=== PATIENT | male | born 1970 | race Caucasian/White ===

== ENCOUNTER 2018-12-10 04:37 | Emergency (ER) | payer BC, OTHER ==
[~2018-12-10] VITALS: Ht 177.8 cm; Wt 121.9 kg
[2018-12-10 04:41] VITALS: Ht 177.8 cm; Wt 121.9 kg
[2018-12-10] MEDS ORDERED: SOD CHLORIDE 0.9% 500 ML IV STA (05:12)
[2018-12-10] MEDS ORDERED: PHEN300C2 PO (06:38)
--- NOTE | 2018-12-10 06:44 | ERD ---
ER Documentation Chief Complaint Chief Complaint BIB W/ C/O POSSIBLE SZ'S, HX OF SZ, ON AND OFF ALOC X48HRS HPI 48-year-old man with a history of partial focal seizures presenting with increased episodes over the last 2weeks. Patient has been using Dilantin 400 mg daily for about 10 years and still suffers from momentary focal partial seizures about once every 2 to 3 weeks as stated by the patient and his who was at the bedside. His seizures usually consist of "lipsmacking", momentary confusion, and blank stare. states his symptoms have become more intense over the last 2 weeks and have become daily. He denies ever having generalized tonic-clonic seizure, no recent fevers or chills, no chest pain or shortness of breath. ROS All systems reviewed and are negative except as per history of present illness. Medications Home Meds Active Scripts Phenytoin* Sodium Extended (Dilantin*) 300 Mg Capsule, 300 MG PO BID, #60 CAP Prov:NIRANJAN CASTANO MD 12/10/18 PMhx/Soc Seizure disorder Medical and Surgical Hx: pt denies Surgical Hx Hx Neurological Disorder: Yes (SEIZURE DISORDER ) Hx Respiratory Disorders: Yes (ASTHMA ) Hx Cardiac Disorders: Yes (HTN ) Hx Psychiatric Problems: No Hx Miscellaneous Medical Probl: Yes (SORIATIC ARTHRITIS ) Hx Alcohol Use: No Hx Substance Use: No Hx Tobacco Use: No Smoking Status: Never smoker FmHx Family History: No diabetes Physical Exam Vitals Vital Signs Date Temp Pulse Resp B/P (MAP) Pulse Ox O2 O2 Flow FiO2 Time Delivery Rate 12/10/18 89 20 130/78 Room Air 07:07 (95) 12/10/18 98.3 91 19 135/94 95 04:41 (108) Physical Exam GENERAL: Well-developed, well-nourished, well-hydrated, in no apparent distress, looks nontoxic in appearance HEENT: Moist mucous membranes, pink conjunctiva, no cervical spine tenderness or step-off deformities, no goiter, no jaundice or icterus, extraocular movements intact without pain. No submandibular induration, and no pharyngeal erythema NEURO: Alert and oriented 3, cranial nerves II through XII intact bilaterally, pupils equal round reactive to light, no focal deficits or facial asymmetry, sensation intact distally Strength 5/5 in upper and lower extremities bilaterally CARDIAC: Regular rate and rhythm, no murmurs rubs or gallops LUNGS: Clear bilaterally no wheezing crackles or stridor ABDOMEN: Soft nontender, no guarding, no rigidity, no rebound, no psoas sign no obturator sign. Normoactive bowel sounds SKIN: Warm and dry to touch, no abrasions, contusions, or hematomas, no lacerations, no ecchymosis, no target lesions, and without ulcers EXTREMITIES: No clubbing cyanosis or edema, calves are bilaterally symmetrical, no Homans sign, no popliteal cord sign. Distal pulses equal and bilateral PSYCH: Normal affect without agitation or irritability Result Diagram: 12/10/1852912/10/1830 Results 24 hrs Laboratory Tests Test 12/10/18 05:30 12/10/18 05:36 White Blood Count 12.1 10^3/ul Red Blood Count 5.09 10^6/ul Hemoglobin 15.7 g/dl Hematocrit 45.7 % Mean Corpuscular Volume 89.8 fl Mean Corpuscular Hemoglobin 30.8 pg Mean Corpuscular Hemoglobin Concent 34.4 g/dl Red Cell Distribution Width 13.7 % Platelet Count 225 10^3/UL Mean Platelet Volume 11.5 fl Immature Granulocytes % 1.100 % Neutrophils % 86.3 % Lymphocytes % 6.0 % Monocytes % 6.4 % Eosinophils % 0.0 % Basophils % 0.2 % Nucleated Red Blood Cells % 0.0 /100WBC Immature Granulocytes # 0.130 10^3/ul Neutrophils # 10.5 10^3/ul Lymphocytes # 0.7 10^3/ul Monocytes # 0.8 10^3/ul Eosinophils # 0.0 10^3/ul Basophils # 0.0 10^3/ul Nucleated Red Blood Cells # 0.0 10^3/ul Sodium Level 136 mmol/L Potassium Level 3.6 mmol/L Chloride Level 101 mmol/L Carbon Dioxide Level 22 mmol/L Anion Gap 13 Blood Urea Nitrogen 28 mg/dl Creatinine 0.84 mg/dl Est Glomerular Filtrat Rate mL/min > 60 mL/min Glucose Level 170 mg/dl Calcium Level 8.9 mg/dl Phenytoin (Dilantin) Level 4.1 ug/ml Bedside Glucose 160 mg/dL Current Medications Medications Dose Sig/Brittani Start Time Status Last (Trade) Ordered Route PRN Stop Time Admin Dose Reason Admin Sodium 500 ml @ Q1H STAT 12/10/18 DC Chloride 500 mls/hr IV 05:12 12/10/18 06:11 Phenytoin 400 mg ONCE ONCE 12/10/18 DC 12/10/18 (Dilantin) PO 07:00 06:48 12/10/18 07:01 Procedures/MDM IV line was established patient was placed on gambling monitor rhythm strip revealed a sinus rhythm at about 80 bpm with upright P and T waves. Patient was afebrile Patient received 500 cc normal saline IV. CT scan was negative for acute bleed mass or shift. CBC and electrolytes are normal. Phenytoin level was low so I ordered phenytoin 400 mg p.o. x1 Patient does have neurology follow-up scheduled in 2 weeks but in the meantime I agreed to increase his dose of phenytoin to twice a day to help with control these partial seizures. I also discussed with the patient and his that some of his symptoms may be psychiatric in by he may need psychological psychiatric evaluation and consultation although I will defer further management and imaging to his PMD and neurologist. Differential diagnoses considered, included but not limited to acute coronary syndrome, pulmonary embolism, aortic dissection, abdominal aortic aneurysm, sepsis, stroke, meningitis, encephalitis, pneumonia, appendicitis, cholecystitis, bowel obstruction, pyelonephritis, nephrolithiasis, cystitis, as well as metabolic, hematologic, and electrolyte abnormalities. As well as abscess, cellulitis, fractures, and dislocations. Patient feels much better at this time, and vital signs are normal, symptoms have improved. I did give strict instructions to return to the ED if symptoms continue or worsen, patient will otherwise follow-up with primary care physician. Patient understood instructions and agreed to plan. Disclaimer: Inadvertent spelling and grammatical errors are likely due to EHR/dictation software use and do not reflect on the overall quality of patient care. Also, please note that the electronic time recorded on this note does not necessarily reflect the actual time of the patient encounter. Departure Diagnosis: Primary Impression: Seizure disorder Additional Impression: Psychiatric illness Condition: Good Patient Instructions: Seizure, Recurrent [Adult] Referrals: LISA GARRETT MD, YURIY MD WAGNER, JEFFREY C. MD ZOHRABIAN, DAVID MD December 10, 2018 06:44
[2018-12-10] MEDS ORDERED: PHENYTOIN 100 MG CAP PO ONE (07:00)
[2018-12-10 07:07] VITALS: BP 130/78; PULSE 89; RESP 20
[2018-12-11] MEDS ORDERED: VERA360C6 PO (16:57)
[2018-12-11] MEDS ORDERED: CLON0.2T5 PO (16:59)
[2018-12-11] MEDS ORDERED: FOLI-49 PO (17:00)
[2018-12-11] MEDS ORDERED: MET25 PO (17:01)
[2018-12-11] MEDS ORDERED: DICL50TA11 PO (17:02)
[2018-12-11] MEDS ORDERED: HYDR100T25 PO (17:03)
[2018-12-11] MEDS ORDERED: ALPR0.254 PO (17:04)
[2018-12-11] MEDS ORDERED: LISI-471 PO (17:04)
[2018-12-11] MEDS ORDERED: PHEN100C PO (17:08)
[2018-12-11] MEDS ORDERED: ADAL40PE SQ (17:10)
== END 2018-12-10 07:09 | disposition home or self-care (01) ==
LOC: E/R 04:37
DX: G40.909 Epilepsy, unspecified, not intractable, without status epilepticus (principal); I10 Essential (primary) hypertension; J45.909 Unspecified asthma, uncomplicated
CPT/HCPCS: 36415; 70450; 80048; 80185; 82962; 85025; 99284; J7040

== ENCOUNTER 2018-12-11 15:25 | Inpatient (IN) | payer BC ==
[~2018-12-11] VITALS: Ht 177.8 cm; Wt 122.6 kg
[~2018-12-11 15:25] MED LIST: PHEN300C2 PO
[2018-12-11] MEDS ORDERED: LORAZEPAM 2 MG INJ IV STA (15:35)
[2018-12-11] MEDS ORDERED: SOD CHLORIDE 0.9% 500 ML IV STA (15:35)
[2018-12-11] MEDS ORDERED: VERA360C6 PO (16:57)
[2018-12-11] MEDS ORDERED: CLON0.2T5 PO (16:59)
[2018-12-11] MEDS ORDERED: FOLI-49 PO (17:00)
[2018-12-11] MEDS ORDERED: MET25 PO (17:01)
[2018-12-11] MEDS ORDERED: DICL50TA11 PO (17:02)
[2018-12-11] MEDS ORDERED: HYDR100T25 PO (17:03)
[2018-12-11] MEDS ORDERED: LISI-471 PO (17:04)
[2018-12-11] MEDS ORDERED: ALPR0.254 PO (17:04)
[2018-12-11] MEDS ORDERED: PHEN100C PO (17:08)
[2018-12-11] MEDS ORDERED: ADAL40PE SQ (17:10)
--- NOTE | 2018-12-11 18:25 | ERD ---
ER Documentation Chief Complaint Chief Complaint FALL IN BATHROOM DIGESTER CAPPER POSSIBLE SEIZURE H/O SEIZURES HPI This is a 48-year-old male with a past medical history of hypertension, arthritis, asthma, seizure disorder on Dilantin who is presenting for possible focal seizures that have been recurrent and increasing in frequency over the l ast several days. The patient was evaluated yesterday where he had a reassuring work-up and was ultimately discharged on an increased dose of Dilantin. Despite taking this increased dose last night and this morning, the patient's symptoms have persisted. The patient has these few seconds a few minute episodes of lipsmacking. Sometimes he reports remembering the event. Other times it, he reports not remembering the event. The patient's reports that he has been more altered than is typical over the last several days, which is concerning to her. The patient's reports that he was confused after 1 of these events and started running around the house and ultimately hit his head against the wall by accident. She does not feel that she is able to control him during these episodes and is afraid for his safety. The patient is currently alert and oriented. He does have these intermittent episodes of lip smacking, but he reports that sometimes he feels like he can control them. He does not have any current focal deficits. He does not have any weakness or numbness or tingling to the face or extremities. He has not been sick recently. He denies any fever or chills. The patient has had no headache or vision changes. The patient does not endorse neck or back pain. The patient denies lightheadedness or dizziness. The patient has had no chest pain or trouble breathing. The patient denies nausea or vomiting. The patient denies abdominal pain. The patient denies changes to bowel movements or urination. ROS All systems reviewed and are negative except as per history of present illness. Medications Home Meds Reported Medications Adalimumab (Humira) 40 Mg/0.8 Ml Pen.ij.kit, 0.4 ML SQ Q 14D 12/11/18 Phenytoin* Sodium Extended (Dilantin*) 100 Mg Capsule, 100 MG PO QID, CAP ADJUSTED IN ER ON SAT-QA (12/10)-3CAP BID 12/11/18 Lisinopril* (Lisinopril*) 20 Mg Tablet, 20 MG PO BID, #30 TAB 12/11/18 Alprazolam* (Alprazolam*) 0.25 Mg Tablet, 0.25 MG PO TID PRN for ANXIETY, TAB 12/11/18 Hydralazine Hcl* (Hydralazine Hcl*) 100 Mg Tablet, 100 MG PO TID, #90 TAB 12/11/18 Diclofenac Sodium* (Diclofenac Sodium*) 50 Mg Tablet.dr, 50 MG PO BID, #60 TAB 12/11/18 Methotrexate* (Methotrexate*) 2.5 Mg Tab, 20 MG PO Q7D, TAB 12/11/18 Folic Acid* (Folic Acid*) 1 Mg Tablet, 1 MG PO DAILY, TAB 12/11/18 Clonidine Hcl* (Clonidine Hcl*) 0.2 Mg Tablet, 0.2 MG PO Q4H PRN for HTN, TAB 12/11/18 Verapamil Hcl* (Verelan*) 360 Mg Cap24h.pel, 360 MG PO DAILY, CAP 12/11/18 Discontinued Scripts Phenytoin* Sodium Extended (Dilantin*) 300 Mg Capsule, 300 MG PO BID, #60 CAP Prov:NIRANJAN CASTANO MD 12/10/18 Allergies Allergies: Coded Allergies: No Known Allergy (Unverified , 12/11/18) PMhx/Soc History of Surgery: No Anesthesia Reaction: No Hx Neurological Disorder: Yes (SEIZURE DISORDER ) Hx Respiratory Disorders: Yes (ASTHMA ) Hx Cardiac Disorders: Yes (HTN ) Hx Psychiatric Problems: No Hx Miscellaneous Medical Probl: Yes (SORIATIC ARTHRITIS ) Hx Alcohol Use: No Hx Substance Use: No Hx Tobacco Use: No Smoking Status: Never smoker FmHx Family History: No diabetes Physical Exam Vitals Vital Signs Date Temp Pulse Resp B/P (MAP) Pulse Ox O2 O2 Flow FiO2 Time Delivery Rate 12/11/18 68 18 108/91 96 Room Air 17:00 (97) 12/11/18 98.1 89 16 139/76 99 15:31 (97) Physical Exam Const: No apparent distress, well-developed, well-nourished Head: Normocephalic, Atraumatic Eyes: Normal Conjunctiva. Extraocular movements intact. Pupils equal, round and reactive to light ENT: Normal External Ears, Nose and Mouth. Neck: Full range of motion. No meningismus. Resp: Clear to auscultation bilaterally, No wheezes, rales or rhonchi Cardio: Regular rate and rhythm. No murmurs, rubs or gallops Abd: Soft, non tender, non distended. Normal bowel sounds Skin: No petechiae or rashes Back: No midline tenderness. No CVA tenderness Ext: No cyanosis, or edema Neur: Awake and alert, oriented 4. Cranial nerves intact. No facial droop. Normal strength, sensation and coordination. Few second episode of lipsmacking occurred during the physical assessment. Psych: Odd affect Result Diagram: 12/11/18 1558 12/11/18 1558 Results 24 hrs Laboratory Tests Test 12/11/18 15:58 White Blood Count 13.5 10^3/ul Red Blood Count 4.63 10^6/ul Hemoglobin 14.3 g/dl Hematocrit 40.2 % Mean Corpuscular Volume 86.8 fl Mean Corpuscular Hemoglobin 30.9 pg Mean Corpuscular Hemoglobin Concent 35.6 g/dl Red Cell Distribution Width 13.3 % Platelet Count 211 10^3/UL Mean Platelet Volume 11.0 fl Immature Granulocytes % 1.700 % Neutrophils % 81.1 % Lymphocytes % 6.7 % Monocytes % 10.4 % Eosinophils % 0.0 % Basophils % 0.1 % Nucleated Red Blood Cells % 0.0 /100WBC Immature Granulocytes # 0.230 10^3/ul Neutrophils # 10.9 10^3/ul Lymphocytes # 0.9 10^3/ul Monocytes # 1.4 10^3/ul Eosinophils # 0.0 10^3/ul Basophils # 0.0 10^3/ul Nucleated Red Blood Cells # 0.0 10^3/ul Sodium Level 127 mmol/L Potassium Level 3.1 mmol/L Chloride Level 91 mmol/L Carbon Dioxide Level 23 mmol/L Anion Gap 13 Blood Urea Nitrogen 17 mg/dl Creatinine 0.66 mg/dl Est Glomerular Filtrat Rate mL/min > 60 mL/min Glucose Level 121 mg/dl Calcium Level 8.1 mg/dl Current Medications Medications Dose Sig/Brittani Start Time Status Last (Trade) Ordered Route PRN Stop Time Admin Dose Reason Admin Sodium 500 ml @ Q1H STAT 12/11/18 DC 12/11/18 Chloride 500 mls/hr IV 15:35 15:53 12/11/18 16:34 Lorazepam 1 mg ONCE STAT 12/11/18 DC 12/11/18 (Ativan) IV 15:35 15:52 12/11/18 15:36 Procedures/MDM MDM The patient's presentation warrants further investigation. Previous medical records, if available, were reviewed. LABS The patient's laboratory testing was obtained and reviewed. No emergent treatment was required unless described below. CBC: Leukocytosis, likely reactive. No E/o severe anemia or thrombocytopenia Chemistry: Mild hyponatremia and hypokalemia, nonemergent. No E/o severe acidosis or alkalosis or renal failure or diabetic ketoacidosis IMAGING Imaging and Radiology interpretation reviewed. CXR FINDINGS: The cardiomediastinal silhouette is within normal limits. No focal pulmonary consolidations. There is no evidence of significant pleural effusion or pneumothorax. No suspicious osseous lesions. IMPRESSION: No radiographic evidence of acute cardiopulmonary disease. Electronically viewed and signed by Physician Alexandra on 12/11/2018 16:21 CT Head FINDINGS: Hemorrhage: No evidence of intracranial hemorrhage. Acute ischemic changes: No evidence of acute ischemic changes. Mass effect: None. Parenchymal volume: Within normal limits for age. Ventricular system: Concordant with parenchymal volume. Chronic changes: Parenchymal attenuation is within normal limits. Extracranial soft tissues: Unremarkable. Calvarium: No fractures. Paranasal sinuses: Visualized paranasal sinuses are clear. Mastoid air cells: Visualized mastoid air cells are clear. IMPRESSION: No acute intracranial abnormalities. Normal appearance of the brain parenchyma, unchanged. MRI of the brain recommended for further evaluation. Electronically viewed and signed by .Dangelo Eller MD, MD on 12/11/2018 16:31 TREATMENT/DISPOSITION The patient presents for reported frequent seizure events. The patient's symptoms have not been under control despite emergency department visit yesterday and compliance with increasing his dose of Dilantin. The patient reportedly struck his head while confused yesterday after 1 of these reported seizure events and there is concerned about the patient's safety at home. I do feel that the patient would benefit from admission to the hospital for a neurologic assessment. The patient reportedly does not have a neurologist following him in an outpatient setting. The patient does have a mild hyponatremia and hypokalemia, but I do not suspect these to be the etiology of his symptoms today. The patient does have an odd affect, and there is consideration for a possible psychiatric illness as the etiology of his symptoms. However, this is a diagnosis of exclusion. I do feel the patient requires further evaluation from a neurologic perspective prior to being able to make a diagnosis like this. I doubt a cardiopulmonary pathology. I do not see evidence of cerebral ischemia or intracranial hemorrhage. I doubt an infectious etiology. The patient was treated with IV fluids and Ativan in the emergency department. The patient's Dilantin level is currently pending. ADMISSION At this time, I feel that the patient requires admission for further evaluation and management. The patient will be admitted to panel in accordance with the patient's insurance. The patient was accepted by Dr. Fernández at 6:15 PM on December 11, 2018. Disclaimer: Inadvertent spelling and grammatical errors are likely due to EHR/dictation software use and do not reflect on the overall quality of patient care. Note that the electronic time recorded on this note does not necessarily reflect the actual time of the patient encounter. Departure Diagnosis: Primary Impression: Recurrent seizures Additional Impressions: Seizure disorder Leukocytosis Leukocytosis type: unspecified Qualified Codes: D72.829 - Elevated white blood cell count, unspecified Hyponatremia Hypokalemia Condition: Serious TOÑO PITTS MD December 11, 2018 18:22
[2018-12-11] MEDS ORDERED: ONDANSETRON 4 MG INJ IV PRN ×2 (18:30→19:00)
[2018-12-11] MEDS ORDERED: ACETAMINOPHEN 325 MG TAB PO PRN ×2 (18:30→19:00)
--- NOTE | 2018-12-11 18:50 | HP ---
Date/Time of Note Date/Time of Note DATE: 12/11/18 TIME: 18:42 Assessment/Plan VTE Prophylaxis SCD applied (from Nsg): Yes Pharmacological prophylaxis: LMWH Lines/Catheters IV Catheter Type (from Nrsg): Saline Lock Assessment/Plan Hospital Course 1. Seizure disorder Patient with increased frequency of seizure activity over the past several weeks CT head with no acute findings Dilantin level from yesterday was low, follow-up repeat Dilantin MRI brain and EEG Neurology consultation obtained Symptoms may be psych related due to increased anxiety and severe stress Continue Dilantin for now, consider changing antiseizure medication, will defer to neurology 2. Hypertension Continue home meds 3. Morbid obesity Left cell changes 4. Hypokalemia Replete 5. Hyponatremia likely secondary to volume depletion Normal saline 6. Hypocalcemia Replete 7. Leukocytosis likely reactive Monitor Prophylaxis: Lovenox Result Diagram: 12/11/18 1558 12/11/18 1558 Results 24hrs Laboratory Tests Test 12/11/18 15:58 White Blood Count 13.5 H Red Blood Count 4.63 L Hemoglobin 14.3 Hematocrit 40.2 L Mean Corpuscular Volume 86.8 Mean Corpuscular Hemoglobin 30.9 Mean Corpuscular Hemoglobin Concent 35.6 Red Cell Distribution Width 13.3 Platelet Count 211 Mean Platelet Volume 11.0 H Immature Granulocytes % 1.700 H Neutrophils % 81.1 H Lymphocytes % 6.7 L Monocytes % 10.4 Eosinophils % 0.0 Basophils % 0.1 Nucleated Red Blood Cells % 0.0 Immature Granulocytes # 0.230 H Neutrophils # 10.9 H Lymphocytes # 0.9 Monocytes # 1.4 H Eosinophils # 0.0 Basophils # 0.0 Nucleated Red Blood Cells # 0.0 Sodium Level 127 L Potassium Level 3.1 L Chloride Level 91 #L Carbon Dioxide Level 23 Anion Gap 13 Blood Urea Nitrogen 17 # Creatinine 0.66 Est Glomerular Filtrat Rate mL/min > 60 Glucose Level 121 # Calcium Level 8.1 L HPI/ROS Admit Date/Time Admit Date/Time December 11, 2018 Hx of Present Illness Patient is a 48-year-old male with a history of obesity, hypertension as well as seizure disorder. Patient first suffered a seizure 23 years ago, at that time he reported fevers and headache prior to his seizure episode. Patient was subsequently started on Dilantin, 6 months later he was playing softball and got hit in the arm suffered another seizure. Patient has continued his Dilantin since then with no further seizures until the past several weeks. Over the past several weeks patient began developing episodes of confusion that would last several minutes where he did not know where he was and would lose focus, patient also developed lipsmacking and would often ramble according to the . Ike wheeler did present to the ED several days ago, CT head was normal, Dilantin level was low and dosage was increased and patient was discharged in stable condition. Since being discharged several days ago patient reportedly became worse, earlier today patient became confused and fell around the pool and hit his head. Repeat CT head shows no acute bleed or any other acute findings. Patient does endorse an increased amount of stress over the past several months due to issues with finances. Patient has no other complaints at this time. ROS Constitutional: no complaints, improved Eyes: no complaints ENT: no complaints Respiratory: no complaints Cardiovascular: no complaints Gastrointestinal: no complaints Genitourinary: no complaints Musculoskeletal: no complaints Skin: no complaints Neurologic: seizure Endocrine: no complaints Lymphatic: no complaints Psychological: anxiety Immunologic: no complaints PMH/Family/Social Past Medical History Hypertension, obesity and seizures Medications Current Medications Ondansetron HCl (Zofran Inj) 4 mg BRIDGE ORDER PRN IV NAUSEA/VOMITING; Start 12/11/18 at 18:30; Stop 12/12/18 at 18:29 Acetaminophen (Tylenol Tab) 650 mg ER BRIDGE PRN PO .MILD PAIN 1-3 OR TEMP; Start 12/11/18 at 18:30; Stop 12/12/18 at 18:29 Coded Allergies: No Known Allergy (Unverified , 12/11/18) Past Surgical History Past Surgical Hx: no surgical history Family History Significant Family History: diabetes Social History Alcohol Use: rarely Smoking Status: Never smoker Drug Use: none Exam/Review of Systems Vital Signs Vitals Vital Signs Date Temp Pulse Resp B/P (MAP) Pulse Ox O2 O2 Flow FiO2 Time Delivery Rate 12/11/18 77 20 117/74 100 Room Air 18:24 (88) 12/11/18 98.1 15:31 Exam Constitutional: alert, oriented Respiratory: clear to auscultation Cardiovascular: regular rate and rhythm Gastrointestinal: soft; No distended Musculoskeletal: nl extremities to inspection VINH CRAMER December 11, 2018 18:50
[2018-12-11] MEDS ORDERED: NACL 0.9% 3 ML SYG IV SCH (19:00)
[2018-12-11] MEDS ORDERED: HYDROCODONE/APAP (5/325) TAB PO PRN (19:00)
[2018-12-11] MEDS ORDERED: hydrALAzine 20 MG INJ IV PRN (19:00)
[2018-12-11] MEDS ORDERED: LORAZEPAM 2 MG INJ IV PRN (19:00)
[2018-12-11] MEDS ORDERED: morphine 2 MG INJ IV PRN (19:00)
[2018-12-11] MEDS ORDERED: DOCUSATE SODIUM 100 MG CAP PO PRN (19:00)
[2018-12-11] MEDS ORDERED: METOPROLOL 5 MG INJ ONE (20:00)
[2018-12-11] MEDS ORDERED: LORAZEPAM 2 MG INJ IV ONE (20:30)
[2018-12-11] MEDS ORDERED: CALCIUM GLUCONATE 10% 1 GM in DEXTROSE 5% 100 ML IVPB ONE (20:30)
[2018-12-11] MEDS ORDERED: ZOLPIDEM 5 MG TAB PO PRN (21:00)
[2018-12-11] MEDS: NS + KCL 20 MEQ 1,000 ML IV SCH (21:05)
[2018-12-11] MEDS: PHENYTOIN 100 MG CAP PO SCH (21:16)
[2018-12-11] MEDS ORDERED: METHOTREXATE 2.5 MG TAB PO SCH (22:00)
[2018-12-11] MEDS: LISINOPRIL 20 MG TAB PO SCH (22:45)
[2018-12-12] VITALS (14 sets, daily range): BP systolic 119–166; BP diastolic 59–102; PULSE 79–176; RESP 19–20; Ht 177.8 cm; Wt 122.6 kg
[2018-12-12] MEDS ORDERED: DILTIAZEM 30 MG TAB PO ONE
[2018-12-12] MEDS ORDERED: LORAZEPAM 2 MG INJ IV ONE (01:30)
[2018-12-12] MEDS ORDERED: DILTIAZEM 25 MG INJ IV ONE ×2 (01:30)
[2018-12-12] MEDS: DILTIAZEM-D5W 125MG/125ML DRIP 125 ML IV SCH ×5 (02:14→21:57)
[2018-12-12] MEDS: NS + KCL 20 MEQ 1,000 ML IV SCH ×4 (03:54→23:53)
[2018-12-12] MEDS: PHENYTOIN 100 MG CAP PO SCH ×4 (09:24→20:37)
[2018-12-12] MEDS: FOLIC ACID 1 MG TAB PO SCH (09:24)
[2018-12-12] MEDS: LISINOPRIL 20 MG TAB PO SCH ×2 (09:24→20:37)
[2018-12-12] MEDS: LORAZEPAM 2 MG INJ IV PRN ×2 (09:25→16:36)
[2018-12-12] MEDS: ENOXAPARIN 40 MG/0.4 ML SYG SC SCH (09:32)
[2018-12-12] MEDS: VERAPAMIL (SR) 180 MG TAB PO SCH (10:44)
[2018-12-12] MEDS ORDERED: POTASSIUM CHLORIDE (SR) 20 MEQ TAB PO STA (11:19)
--- NOTE | 2018-12-12 12:39 | PSY ---
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 On a [id number] evaluation, patient denies history of depression, he denies feeling hopeless and helpless, denies suicidal ideation and contracted for safety. Patient has some latency in response, when I asked if he hears voices patient stated he heard voices of his late mother last week, telling him to do the right thing, while he was sleeping. He is guarded evasive and refused to elaborate more about the voices. Patient reports anxiety and phobia about flying, which she takes alprazolam only as needed when he wants to fly. Patient states he does not need any psych meds with continue to keep his alprazolam he uses as needed for flights about 4 times a year. Past psychiatric history Has history of anxiety and phobia Medical history Problems Medical Problems: (1) Hypokalemia Status: Acute (2) Hyponatremia Status: Acute (3) Leukocytosis Status: Acute (4) Psychiatric illness Status: Acute (5) Recurrent seizures Status: Acute (6) Seizure disorder Status: Acute (7) Seizure disorder Status: Acute Allergies: Coded Allergies: No Known Allergy (Unverified , 12/11/18) Substance Abuse Substance use: other Substance abuse history: No Prior substance abuse treatmen: No Social History Marital status: DPA/Conservatorship: No Psychiatric Objective Eval Physical Examination: Physical Examination: Not Applicable Appetite: Adequate Energy: Adequate Interest: Adequate Mental Status Examination: Appearance: Groomed Eye Contact: Good Psychomotor Activity: Slow Behavior: Cooperative Speech: Clear AFFECT: Appropriate Mood: Appropriate/Full Though Process: Linear Thought Content: Hallucinations (Twice last week, with the voice of his late mother telling him to do the right thing, where he was sleeping.) Orientation: x4 Cognition: Alert Insight: Intact Judgement: Intact Attention Span: Distractible Laboratory Results Laboratory Tests Test 12/11/18 15:58 12/11/18 18:20 12/11/18 18:26 12/12/18 06:25 White Blood Count 13.5 10^3/ul 12.4 10^3/ul Red Blood Count 4.63 10^6/ul 4.84 10^6/ul Hemoglobin 14.3 g/dl 14.7 g/dl Hematocrit 40.2 % 42.2 % Mean Corpuscular 86.8 fl 87.2 fl Volume Mean Corpuscular 30.9 pg 30.4 pg Hemoglobin Mean Corpuscular 35.6 g/dl 34.8 g/dl Hemoglobin Concent Red Cell 13.3 % 13.4 % Distribution Width Platelet Count 211 10^3/UL 240 10^3/UL Mean Platelet 11.0 fl 10.6 fl Volume Immature 1.700 % 1.500 % Granulocytes % Neutrophils % 81.1 % 72.7 % Lymphocytes % 6.7 % 10.2 % Monocytes % 10.4 % 15.4 % Eosinophils % 0.0 % 0.0 % Basophils % 0.1 % 0.2 % Nucleated Red 0.0 /100WBC 0.0 /100WBC Blood Cells % Immature 0.230 10^3/ul 0.180 10^3/ul Granulocytes # Neutrophils # 10.9 10^3/ul 9.0 10^3/ul Lymphocytes # 0.9 10^3/ul 1.3 10^3/ul Monocytes # 1.4 10^3/ul 1.9 10^3/ul Eosinophils # 0.0 10^3/ul 0.0 10^3/ul Basophils # 0.0 10^3/ul 0.0 10^3/ul Nucleated Red 0.0 10^3/ul 0.0 10^3/ul Blood Cells # Sodium Level 127 mmol/L 130 mmol/L Potassium Level 3.1 mmol/L 3.2 mmol/L Chloride Level 91 mmol/L 95 mmol/L Carbon Dioxide 23 mmol/L 28 mmol/L Level Anion Gap 13 7 Blood Urea 17 mg/dl 14 mg/dl Nitrogen Creatinine 0.66 mg/dl 0.70 mg/dl Est Glomerular > 60 mL/min > 60 mL/min Filtrat Rate mL/min Glucose Level 121 mg/dl 124 mg/dl Calcium Level 8.1 mg/dl 8.4 mg/dl Ethyl Alcohol < 10.0 mg/dl Level Phenytoin 12.0 ug/ml (Dilantin) Level Hemoglobin A1c 5.2 % Phosphorus Level 2.4 mg/dl Magnesium Level 2.1 mg/dl Triglycerides 112 mg/dl Level Cholesterol Level 136 mg/dl LDL Cholesterol, 68 mg/dl Calculated HDL Cholesterol 46 mg/dl Cholesterol/HDL 2.9 RATIO Ratio Thyroid 0.733 MIU/L Stimulating Hormone (TSH) Free Thyroxine 5.04 ug/ml Index Thyroxine (T4) 11.8 ug/dl Triiodothyronine 42.7 % (T3) Uptake Assessment and Plan Assessment/Diagnosis Diagnosis Anxiety disorder NOS Recommendation/Plan Medication Management Alprazolam as needed Multiple antipsychotics: No Psychotherapy Provide supportive therapy Discharge Disposition: Other (Other) Legal Status: Voluntary (Does not meet criteria for 5150 hold) QIAN CEE NP December 12, 2018 12:39
--- NOTE | 2018-12-12 13:43 | CONS ---
Assessment/Plan Assessment/Plan Hospital Course 48 yo M with hx of epilepsy and multiple other comorbidities who presents following a cluster of seizure episodes... for which neurology is consulted. It is likely multifactorial in the context of medication noncompliance and systemic illness. MRI brain is without acute intracranial pathology. P: Await EEG to evaluate for epileptiform activity Continue dilantin 100mg QID per ops, for now; titrate PRN to goal level 10-20 Ativan IV PRN prolonged seizure or for cluster Cont medical management per primary Reorient as necessary Limit sedating medications where possible PT/OT as necessary Will follow clinically Consultation Date/Type/Reason Admit Date/Time December 11, 2018 Type of Consult Neurology Reason for Consultation seizure clusters Requesting Provider: VINH CRAMER Date/Time of Note DATE: 12/12/18 TIME: 13:42 Hx of Present Illness 48 yo M with hx of epilepsy and other comorbidities who presented to the ED for evaluation of cluster seizure episodes. Hx was obtained from the pt, , and chart review. She states that starting on Saturday, 12/07, he started having multiple seizures daily (10-20 episodes). They reportedly called his PCP the following day who recommended they go to the ED. On 12/10, they presented to the ED where a medical workup was done and his dilantin level was found to be 4.2. His dilantin was increased in the ED and he was then sent home. He presented again to the ED the following day (this current admission), 12/11, with continued seizure episodes and confusion. His sodium on arrival was 127 and dilantin level was 12. He endorses full medication compliance though states he does not like the side effects. The states that his normal seizures begin with lip-smacking just prior to a staring spell. She states that they are now a staring spell only and that he occasionally can respond to yes or no questions during the episode. She also states that he has been doing weird things, like running around the house while pointing at objects and laughing. The pt notes that this week, he is starting to have hallucinations, where he heard his mother and grandmother talking to him and where he mistook his 3 couch pillows for his cats. He currently endorses feeling somewhat confused and weak. The states that this is much different from his baseline. It is additionally elsewhere noted: Hx of Present Illness Patient is a 48-year-old male with a history of obesity, hypertension as well as seizure disorder. Patient first suffered a seizure 23 years ago, at that time he reported fevers and headache prior to his seizure episode. Patient was subsequently started on Dilantin, 6 months later he was playing softball and got hit in the arm suffered another seizure. Patient has continued his Dilantin since then with no further seizures until the past several weeks. Over the past several weeks patient began developing episodes of confusion that would last several minutes where he did not know where he was and would lose focus, patient also developed lipsmacking and would often ramble according to the . Patient did present to the ED several days ago, CT head was normal, Dilantin level was low and dosage was increased and patient was discharged in stable condition. Since being discharged several days ago patient reportedly became worse, earlier today patient became confused and fell around the pool and hit his head. Repeat CT head shows no acute bleed or any other acute findings. Patient does endorse an increased amount of stress over the past several months due to issues with finances. Patient has no other complaints at this time. negative unless noted otherwise in HPI Exam/Review of Systems Exam Vitals Vital Signs Date Temp Pulse Resp B/P (MAP) Pulse Ox O2 O2 Flow FiO2 Time Delivery Rate 12/12/18 93 12:25 12/12/18 99.7 19 138/72 93 11:30 (94) 12/12/18 Room Air 04:00 Intake and Output 12/11/18 12/11/18 12/12/18 1515:00 23:00 07:00 IntakeIntake Total 1160 ml BalanceBalance 1160 ml Exam PE: Gen Appearance: No Apparent Distress HEENT: Normocephalic Cardiovascular: Regular rate Lungs: Clear bilaterally Abdomen: Soft Extremities: Dry NE: The patient was alert and oriented. Language was normal. Thought process not linear. Judgment poor. Fund of knowledge was adequate. Pupils were equal and reactive to light. There was no afferent pupillary defect. Visual mora were normal. Funduscopic examination was limited. Extra-ocular movements were full. Ptosis was absent. There was no nystagmus. Facial sensation was normal. Face was symmetric with normal strength. Hearing was intact. Palate movements were normal. Neck strength was normal. There was normal tongue bulk and speed of movement. Tone was normal. Muscle bulk was normal. I did not see fasciculations. Arms and legs were mildly weak, symmetrically. Vibration sensation was normal. Temperature and pinprick sensation was normal. Rapid alternating movements were normal. There was no dysmetria. There was no intention tremor. Gait was deferred due to bedrest. Arm and leg reflexes were 2+ and symmetric. Valdez's sign was absent. Plantar responses were flexor. Results Result Diagram: 12/12/1862412/12/1825 Results 24hrs Laboratory Tests Test 12/11/18 15:58 12/11/18 18:20 12/11/18 18:26 12/12/18 06:25 White Blood Count 13.5 H 12.4 H Red Blood Count 4.63 L 4.84 Hemoglobin 14.3 14.7 Hematocrit 40.2 L 42.2 Mean Corpuscular 86.8 87.2 Volume Mean Corpuscular 30.9 30.4 Hemoglobin Mean Corpuscular 35.6 34.8 Hemoglobin Concent Red Cell 13.3 13.4 Distribution Width Platelet Count 211 240 Mean Platelet Volume 11.0 H 10.6 H Immature 1.700 H 1.500 H Granulocytes % Neutrophils % 81.1 H 72.7 Lymphocytes % 6.7 L 10.2 L Monocytes % 10.4 15.4 H Eosinophils % 0.0 0.0 Basophils % 0.1 0.2 Nucleated Red Blood 0.0 0.0 Cells % Immature 0.230 H 0.180 H Granulocytes # Neutrophils # 10.9 H 9.0 H Lymphocytes # 0.9 1.3 Monocytes # 1.4 H 1.9 H Eosinophils # 0.0 0.0 Basophils # 0.0 0.0 Nucleated Red Blood 0.0 0.0 Cells # Sodium Level 127 L 130 L Potassium Level 3.1 L 3.2 L Chloride Level 91 #L 95 L Carbon Dioxide Level 23 28 Anion Gap 13 7 Blood Urea Nitrogen 17 # 14 Creatinine 0.66 0.70 Est Glomerular > 60 > 60 Filtrat Rate mL/min Glucose Level 121 # 124 Calcium Level 8.1 L 8.4 Ethyl Alcohol Level < 10.0 H Phenytoin (Dilantin) 12.0 Level Hemoglobin A1c 5.2 Phosphorus Level 2.4 L Magnesium Level 2.1 Triglycerides Level 112 Cholesterol Level 136 LDL Cholesterol, 68 Calculated HDL Cholesterol 46 Cholesterol/HDL 2.9 Ratio Thyroid Stimulating 0.733 Hormone (TSH) Free Thyroxine Index 5.04 H Thyroxine (T4) 11.8 H Triiodothyronine 42.7 H (T3) Uptake Medications Medication Current Medications Potassium Chloride/Sodium Chloride 1,000 ml @ 100 mls/hr Q10H IV Last administered on 12/12/18at 09:24; Admin Dose 100 MLS/HR; Start 12/11/18 at 18:50 IV Flush (NS 3 ml) 3 ml PER PROTOCOL IV ; Start 12/11/18 at 19:00 Ondansetron HCl (Zofran Inj) 4 mg Q6H PRN IV NAUSEA/VOMITING; Start 12/11/18 at 19:00 Acetaminophen (Tylenol Tab) 650 mg Q6H PRN PO .PAIN 1-3 OR TEMP; Start 12/11/18 at 19:00 Acetaminophen/ Hydrocodone Bitart ([place] (5/325)) 1 tab Q6H PRN PO .MOD PAIN 4- 6; Start 12/11/18 at 19:00 Morphine Sulfate (morphine) 2 mg Q4H PRN IV .SEVERE PAIN 7-10; Start 12/11/18 a t 19:00 Docusate Sodium (Colace) 100 mg Q12H PRN PO .CONSTIPATION; Start 12/11/18 at 19:00 Zolpidem Tartrate (Ambien) 5 mg QHS PRN PO .INSOMNIA; Start 12/11/18 at 21:00 Enoxaparin Sodium (Lovenox) 40 mg DAILY SC Last administered on 12/12/18at 09:32; Admin Dose 40 MG; Start 12/12/18 at 09:00 Alprazolam (Xanax) 0.25 mg TID PRN PO ANXIETY; Start 12/11/18 at 19:00 Folic Acid (Folic Acid) 1 mg DAILY PO Last administered on 12/12/18at 09:24; Admin Dose 1 MG; Start 12/12/18 at 09:00 Hydralazine HCl (Apresoline) 100 mg TID PO Last administered on 12/12/18at 12:56; Admin Dose 100 MG; Start 12/11/18 at 21:00 Lisinopril (Zestril) 20 mg BID PO Last administered on 12/12/18at 09:24; Admin Dose 20 MG; Start 12/11/18 at 21:00 Methotrexate (Methotrexate) 20 mg Q7D PO Last administered on 12/11/18at 22:46; Admin Dose 20 MG; Start 12/11/18 at 22:00 Phenytoin (Dilantin) 100 mg QID PO Last administered on 12/12/18at 12:56; Admin Dose 100 MG; Start 12/11/18 at 21:00 Verapamil HCl (Isoptin Sr) 360 mg DAILY PO Last administered on 12/12/18at 10:44; Admin Dose 360 MG; Start 12/12/18 at 09:00 Hydralazine HCl (Apresoline) 10 mg Q4H PRN IV SBP>170; Start 12/11/18 at 19:00 Diltiazem HCl 125 ml @ 5 mls/hr TITRATE IV Last administered on 12/12/18at 10:44; Admin Dose 15 MLS/HR; Start 12/12/18 at 01:30 Lorazepam (Ativan) 1 mg Q4H PRN IV AGITATION/ANXIETY Last administered on 12/12/18at 09:25; Admin Dose 1 MG; Start 12/12/18 at 05:00 Past Medical History reviewed Home Meds Reported Medications Adalimumab (Humira) 40 Mg/0.8 Ml Pen.ij.kit, 0.4 ML SQ Q 14D 12/11/18 Phenytoin* Sodium Extended (Dilantin*) 100 Mg Capsule, 100 MG PO QID, CAP ADJUSTED IN ER ON (12/10)-3CAP BID 12/11/18 Lisinopril* (Lisinopril*) 20 Mg Tablet, 20 MG PO BID, #30 TAB 12/11/18 Alprazolam* (Alprazolam*) 0.25 Mg Tablet, 0.25 MG PO TID PRN for ANXIETY, TAB 12/11/18 Hydralazine Hcl* (Hydralazine Hcl*) 100 Mg Tablet, 100 MG PO TID, #90 TAB 12/11/18 Diclofenac Sodium* (Diclofenac Sodium*) 50 Mg Tablet.dr, 50 MG PO BID, #60 TAB 12/11/18 Methotrexate* (Methotrexate*) 2.5 Mg Tab, 20 MG PO Q7D, TAB 12/11/18 Folic Acid* (Folic Acid*) 1 Mg Tablet, 1 MG PO DAILY, TAB 12/11/18 Clonidine Hcl* (Clonidine Hcl*) 0.2 Mg Tablet, 0.2 MG PO Q4H PRN for HTN, TAB 12/11/18 Verapamil Hcl* (Verelan*) 360 Mg Cap24h.pel, 360 MG PO DAILY, CAP 12/11/18 Discontinued Scripts Phenytoin* Sodium Extended (Dilantin*) 300 Mg Capsule, 300 MG PO BID, #60 CAP Prov:NIRANJAN CASTANO MD 12/10/18 Medications Current Medications Potassium Chloride/Sodium Chloride 1,000 ml @ 100 mls/hr Q10H IV Last administered on 12/12/18at 09:24; Admin Dose 100 MLS/HR; Start 12/11/18 at 18:50 IV Flush (NS 3 ml) 3 ml PER PROTOCOL IV ; Start 12/11/18 at 19:00 Ondansetron HCl (Zofran Inj) 4 mg Q6H PRN IV NAUSEA/VOMITING; Start 12/11/18 at 19:00 Acetaminophen (Tylenol Tab) 650 mg Q6H PRN PO .PAIN 1-3 OR TEMP; Start 12/11/18 at 19:00 Acetaminophen/ Hydrocodone Bitart ([place] (5/325)) 1 tab Q6H PRN PO .MOD PAIN 4- 6; Start 12/11/18 at 19:00 Morphine Sulfate (morphine) 2 mg Q4H PRN IV .SEVERE PAIN 7-10; Start 12/11/18 at 19:00 Docusate Sodium (Colace) 100 mg Q12H PRN PO .CONSTIPATION; Start 12/11/18 at 19:00 Zolpidem Tartrate (Ambien) 5 mg QHS PRN PO .INSOMNIA; Start 12/11/18 at 21:00 Enoxaparin Sodium (Lovenox) 40 mg DAILY SC Last administered on 12/12/18at 09:32; Admin Dose 40 MG; Start 12/12/18 at 09:00 Alprazolam (Xanax) 0.25 mg TID PRN PO ANXIETY; Start 12/11/18 at 19:00 Folic Acid (Folic Acid) 1 mg DAILY PO Last administered on 12/12/18at 09:24; Admin Dose 1 MG; Start 12/12/18 at 09:00 Hydralazine HCl (Apresoline) 100 mg TID PO Last administered on 12/12/18 12:56; Admin Dose 100 MG; Start 12/11/18 at 21:00 Lisinopril (Zestril) 20 mg BID PO Last administered on 12/12/18 09:24; Admin Dose 20 MG; Start 12/11/18 at 21:00 Methotrexate (Methotrexate) 20 mg Q7D PO Last administered on 12/11/18 22:46; Admin Dose 20 MG; Start 12/11/18 at 22:00 Phenytoin (Dilantin) 100 mg QID PO Last administered on 12/12/18 12:56; Admin Dose 100 MG; Start 12/11/18 at 21:00 Verapamil HCl (Isoptin Sr) 360 mg DAILY PO Last administered on 12/12/18 10: 44; Admin Dose 360 MG; Start 12/12/18 at 09:00 Hydralazine HCl (Apresoline) 10 mg Q4H PRN IV SBP>170; Start 12/11/18 at 19:00 Diltiazem HCl 125 ml @ 5 mls/hr TITRATE IV Last administered on 12/12/18 10:44; Admin Dose 15 MLS/HR; Start 12/12/18 at 01:30 Lorazepam (Ativan) 1 mg Q4H PRN IV AGITATION/ANXIETY Last administered on 12/12/18 09:25; Admin Dose 1 MG; Start 12/12/18 at 05:00 Allergies: Coded Allergies: No Known Allergy (Unverified , 12/11/18) Past Surgical History reviewed Past Surgical Hx: no surgical history Social History reviewed Alcohol Use: rarely Smoking Status: Never smoker Drug Use: none DARIN CARRANZA NP December 12, 2018 13:43
--- NOTE | 2018-12-12 16:40 | PN ---
Date/Time of Note Date/Time of Note DATE: 12/12/18 TIME: 16:35 Assessment/Plan VTE Pro[place]axis [place] [facility] [place]: 2 [place]CD applied [place] [facility] [place] SCD contraindicated: other Pharmacological prophylaxis: LMWH Lines/Catheters IV Catheter Type (from [facility]): Peripheral IV Urinary Cath still in place: No Assessment/Plan Hospital Course Assessment and plan 1. Seizure disorder. - Patient reported that he was on Dilantin for several years. - Reported that he recently had his Dilantin increased and as result had increased seizure. - We will continue the patient on seizure precautions. Ativan as needed. - Remains on diltiazem IV. - Follow-up with neurologist for any regimen adjustment. 2. Hypertension. - Will continue on anti-potentials. - Will adjust as needed. 3. History of psoriatic arthritis. - Continue methotrexate. 4. Morbid obesity. - Weight reduction was advised. 5. Hyponatremia. - Monitor level. - Slowly improving. 6. Hypokalemia. - Will replace electrolytes and monitor. Disposition and plan. Monitor for seizures. Follow-up with neurology recommendations. Further recommendations pending clinical course. Discussed plan of care with Dr. Chun Result Diagram: 12/12/18 0625 12/12/18 0625 Results 24hrs Laboratory Tests Test 12/11/18 18:20 12/11/18 18:26 12/12/18 06:25 12/12/18 13:00 Ethyl Alcohol Level < 10.0 H Phenytoin (Dilantin) 12.0 Level White Blood Count 12.4 H Red Blood Count 4.84 Hemoglobin 14.7 Hematocrit 42.2 Mean Corpuscular 87.2 Volume Mean Corpuscular 30.4 Hemoglobin Mean Corpuscular 34.8 Hemoglobin Concent Red Cell 13.4 Distribution Width Platelet Count 240 Mean Platelet Volume 10.6 H Immature 1.500 H Granulocytes % Neutrophils % 72.7 Lymphocytes % 10.2 L Monocytes % 15.4 H Eosinophils % 0.0 Basophils % 0.2 Nucleated Red Blood 0.0 Cells % Immature 0.180 H Granulocytes # Neutrophils # 9.0 H Lymphocytes # 1.3 Monocytes # 1.9 H Eosinophils # 0.0 Basophils # 0.0 Nucleated Red Blood 0.0 Cells # Sodium Level 130 L Potassium Level 3.2 L Chloride Level 95 L Carbon Dioxide Level 28 Anion Gap 7 Blood Urea Nitrogen 14 Creatinine 0.70 Est Glomerular > 60 Filtrat Rate mL/min Glucose Level 124 Hemoglobin A1c 5.2 Calcium Level 8.4 Phosphorus Level 2.4 L Magnesium Level 2.1 Triglycerides Level 112 Cholesterol Level 136 LDL Cholesterol, 68 Calculated HDL Cholesterol 46 Cholesterol/HDL 2.9 Ratio Thyroid Stimulating 0.733 Hormone (TSH) Free Thyroxine Index 5.04 H Thyroxine (T4) 11.8 H Triiodothyronine 42.7 H (T3) Uptake Urine Opiates Screen Negative Urine Barbiturates Negative Urine Amphetamines Negative Screen Urine Negative Benzodiazepines Screen Urine Cocaine Screen Negative Urine Cannabinoids Negative Subjective 24 Hr Interval Summary Free Text/Dictation no active seizure during visit Exam/Review of Systems Exam Vitals Vital Signs Date Temp Pulse Resp B/P (MAP) Pulse Ox O2 O2 Flow FiO2 Time Delivery Rate 12/12/18 98.4 79 19 119/59 96 15:59 (79) 12/12/18 Room Air 04:00 Intake and Output 12/11/18 12/11/18 12/12/18 1515:00 23:00 07:00 IntakeIntake Total 1160 ml BalanceBalance 1160 ml Constitutional: alert, oriented, obese Head: normocephalic Neck: supple, non-tender Respiratory: clear to auscultation Cardiovascular: other (regular rate ) Gastrointestinal: soft, non-tender Musculoskeletal: swelling (minimally ble ) 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 intact, nl mental status, nl speech Results Results 24hrs Laboratory Tests Test 12/11/18 18:20 12/11/18 18:26 12/12/18 06:25 12/12/18 13:00 Ethyl Alcohol Level < 10.0 H Phenytoin (Dilantin) 12.0 Level White Blood Count 12.4 H Red Blood Count 4.84 Hemoglobin 14.7 Hematocrit 42.2 Mean Corpuscular 87.2 Volume Mean Corpuscular 30.4 Hemoglobin Mean Corpuscular 34.8 Hemoglobin Concent Red Cell 13.4 Distribution Width Platelet Count 240 Mean Platelet Volume 10.6 H Immature 1.500 H Granulocytes % Neutrophils % 72.7 Lymphocytes % 10.2 L Monocytes % 15.4 H Eosinophils % 0.0 Basophils % 0.2 Nucleated Red Blood 0.0 Cells % Immature 0.180 H Granulocytes # Neutrophils # 9.0 H Lymphocytes # 1.3 Monocytes # 1.9 H Eosinophils # 0.0 Basophils # 0.0 Nucleated Red Blood 0.0 Cells # Sodium Level 130 L Potassium Level 3.2 L Chloride Level 95 L Carbon Dioxide Level 28 Anion Gap 7 Blood Urea Nitrogen 14 Creatinine 0.70 Est Glomerular > 60 Filtrat Rate mL/min Glucose Level 124 Hemoglobin A1c 5.2 Calcium Level 8.4 Phosphorus Level 2.4 L Magnesium Level 2.1 Triglycerides Level 112 Cholesterol Level 136 LDL Cholesterol, 68 Calculated HDL Cholesterol 46 Cholesterol/HDL 2.9 Ratio Thyroid Stimulating 0.733 Hormone (TSH) Free Thyroxine Index 5.04 H Thyroxine (T4) 11.8 H Triiodothyronine 42.7 H (T3) Uptake Urine Opiates Screen Negative Urine Barbiturates Negative Urine Amphetamines Negative Screen Urine Negative Benzodiazepines Screen Urine Cocaine Screen Negative Urine Cannabinoids Negative Medications Medication Current Medications Potassium Chloride/Sodium Chloride 1,000 ml @ 100 mls/hr Q10H IV Last administered on 12/12/18at 09:24; Admin Dose 100 MLS/HR; Start 12/11/18 at 18:50 IV Flush (NS 3 ml) 3 ml PER PROTOCOL IV ; Start 12/11/18 at 19:00 Ondansetron HCl (Zofran Inj) 4 mg Q6H PRN IV NAUSEA/VOMITING; Start 12/11/18 at 19:00 Acetaminophen (Tylenol Tab) 650 mg Q6H PRN PO .PAIN 1-3 OR TEMP; Start 12/11/18 at 19:00 Acetaminophen/ Hydrocodone Bitart ([place] (5/325)) 1 tab Q6H PRN PO .MOD PAIN 4- 6; Start 12/11/18 at 19:00 Morphine Sulfate (morphine) 2 mg Q4H PRN IV .SEVERE PAIN 7-10; Start 12/11/18 at 19:00 Docusate Sodium (Colace) 100 mg Q12H PRN PO .CONSTIPATION; Start 12/11/18 at 19:00 Zolpidem Tartrate (Ambien) 5 mg QHS PRN PO .INSOMNIA; Start 12/11/18 at 21:00 Enoxaparin Sodium (Lovenox) 40 mg DAILY SC Last administered on 12/12/18at 09:32; Admin Dose 40 MG; Start 12/12/18 at 09:00 Alprazolam (Xanax) 0.25 mg TID PRN PO ANXIETY; Start 12/11/18 at 19:00 Folic Acid (Folic Acid) 1 mg DAILY PO Last administered on 12/12/18 09:24; Admin Dose 1 MG; Start 12/12/18 at 09:00 Hydralazine HCl (Apresoline) 100 mg TID PO Last administered on 12/12/18 12:56; Admin Dose 100 MG; Start 12/11/18 at 21:00 Lisinopril (Zestril) 20 mg BID PO Last administered on 12/12/18 09:24; Admin Dose 20 MG; Start 12/11/18 at 21:00 Methotrexate (Methotrexate) 20 mg Q7D PO Last administered on 12/11/18 22:46; Admin Dose 20 MG; Start 12/11/18 at 22:00 Phenytoin (Dilantin) 100 mg QID PO Last administered on 12/12/18 12:56; Admin Dose 100 MG; Start 12/11/18 at 21:00 Verapamil HCl (Isoptin Sr) 360 mg DAILY PO Last administered on 12/12/18 10:44; Admin Dose 360 MG; Start 12/12/18 at 09:00 Hydralazine HCl (Apresoline) 10 mg Q4H PRN IV SBP>170; Start 12/11/18 at 19:00 Diltiazem HCl 125 ml @ 5 mls/hr TITRATE IV Last administered on 12/12/18 10:44; Admin Dose 15 MLS/HR; Start 12/12/18 at 01:30 Lorazepam (Ativan) 1 mg Q4H PRN IV AGITATION/ANXIETY Last administered on 12/12/18 09:25; Admin Dose 1 MG; Start 12/12/18 at 05:00 FANNY CARBALLO NP December 12, 2018 16:40
[2018-12-13] VITALS (13 sets, daily range): BP systolic 125–165; BP diastolic 60–89; PULSE 81–180; RESP 19–22
[2018-12-13] MEDS: LORAZEPAM 2 MG INJ IV PRN ×3 (01:20→15:36)
[2018-12-13] MEDS: DILTIAZEM-D5W 125MG/125ML DRIP 125 ML IV SCH ×2 (09:50→21:12)
[2018-12-13] MEDS: FOLIC ACID 1 MG TAB PO SCH (10:32)
[2018-12-13] MEDS: PHENYTOIN 100 MG CAP PO SCH ×4 (10:34→21:59)
[2018-12-13] MEDS: ENOXAPARIN 40 MG/0.4 ML SYG SC SCH (10:35)
[2018-12-13] MEDS: VERAPAMIL (SR) 180 MG TAB PO SCH (10:39)
[2018-12-13] MEDS: LISINOPRIL 20 MG TAB PO SCH ×2 (10:40→20:52)
[2018-12-13] MEDS: NS + KCL 20 MEQ 1,000 ML IV SCH ×2 (10:52→21:26)
--- NOTE | 2018-12-13 11:16 | CONS ---
Assessment/Plan Assessment/Plan Hospital Course 48 yo M with hx of epilepsy and multiple other comorbidities who presents following a cluster of seizure episodes... for which neurology is consulted. It is likely multifactorial in the context of medication noncompliance and systemic illness. MRI brain is without acute intracranial pathology. P: Await EEG to evaluate for epileptiform activity Bolus dilantin 500mg x1 dose and cont maintenance 100mg QID per ops, for now; titrate PRN to goal level 10-20 Ativan IV PRN prolonged seizure or for cluster Cont medical management per primary Reorient as necessary Limit sedating medications where possible PT/OT as necessary Will follow clinically Consultation Date/Type/Reason Admit Date/Time December 11, 2018 at 18:26 Type of Consult Neurology Reason for Consultation seizure clusters Requesting Provider: VINH CRAMER Date/Time of Note DATE: 12/13/18 TIME: 11:16 24 HR Interval Summary Free Text/Dictation Continues acute care. Pt reportedly had three seizure episodes today, lasting 15-30 seconds at a time. Exam Vital Signs Vitals Vital Signs Date Temp Pulse Resp B/P (MAP) Pulse Ox O2 O2 Flow FiO2 Time Delivery Rate 12/13/18 180 09:40 12/13/18 99.6 19 160/70 96 06:59 (100) 12/12/18 Room Air 04:00 Intake and Output 12/12/18 12/12/18 12/13/18 1515:00 23:00 07:00 IntakeIntake Total 800 ml 900 ml OutputOutput Total 700 ml 2000 ml BalanceBalance 100 ml -1100 ml Exam E: Gen Appearance: No Apparent Distress HEENT: Normocephalic Cardiovascular: Regular rate Lungs: Clear bilaterally Abdomen: Soft Extremities: Dry NE: The patient was lethargic, though easily arousable. Language was normal. Thought process not linear. Judgment poor. Fund of knowledge was adequate. Pupils were equal and reactive to light. There was no afferent pupillary defect. Visual mora were normal. Funduscopic examination was limited. Extra-ocular movements were full. Ptosis was absent. There was no nystagmus. Facial sensation was normal. Face was symmetric with normal strength. Hearing was intact. Palate movements were normal. Neck strength was normal. There was normal tongue bulk and speed of movement. Tone was normal. Muscle bulk was normal. I did not see fasciculations. Arms and legs were mildly weak, symmetrically. Vibration sensation was normal. Temperature and pinprick sensation was normal. Rapid alternating movements were normal. There was no dysmetria. There was no intention tremor. Gait was deferred due to bedrest. Arm and leg reflexes were 2+ and symmetric. Valdez's sign was absent. Plantar responses were flexor. DARIN CARRANZA NP December 13, 2018 11:16 AUSTEN WEBB December 14, 2018 05:53
[2018-12-13] MEDS ORDERED: PHENYTOIN 500 MG in SOD CHLORIDE 0.9% 100 ML IV ONE (13:00)
[2018-12-13] MEDS ORDERED: ADENOSINE 6 MG INJ IV ONE (16:00)
--- NOTE | 2018-12-13 16:10 | PN ---
Date/Time of Note Date/Time of Note DATE: 12/13/18 Assessment/Plan VTE Prophylaxis Risk score (from [facility] [place])>0 risk: 2 SCD applied (from [facility] [place]): No SCD contraindicated: other Pharmacological prophylaxis: LMWH Lines/Catheters IV Catheter Type (from [facility]): Peripheral IV Urinary Cath still in place: No Assessment/Plan Hospital Course Assessment and plan 1. Aflutter/Afib - Was on cardizem medication - cardiology consulted - echo pending - adenosine given today 1. Seizure disorder. - Continue dilantin per nuerology - We will continue the patient on seizure precautions. Ativan as needed. 2. Hypertension. - Will continue on antihypertensive - Will adjust as needed. 3. History of psoriatic arthritis. - Continue methotrexate. - takes humira at home 4. Morbid obesity. - Weight reduction was advised. 5. Hyponatremia. - Monitor level. - improved 6. Hypokalemia. - Will replace electrolytes and monitor. Disposition and plan. [employer] consulted for aflutter/afib. Was given adenosine and on diltiazem. Improving. monitor trend. f/u echo. Discussed plan of care with Dr. Chun Result Diagram: 12/12/18 0625 12/13/18 1159 Results 24hrs Laboratory Tests Test 12/12/18 17:29 12/13/18 11:59 Phenytoin (Dilantin) Level 8.8 L 7.5 L Sodium Level 140 Potassium Level 3.5 Chloride Level 105 # Carbon Dioxide Level 27 Anion Gap 8 Blood Urea Nitrogen 14 Creatinine 0.71 Est Glomerular Filtrat Rate mL/min > 60 Glucose Level 115 Calcium Level 8.8 Total Bilirubin 0.5 Direct Bilirubin 0.00 Indirect Bilirubin 0.5 Aspartate Amino Transf (AST/SGOT) 49 H Alanine Aminotransferase (ALT/SGPT) 95 H Alkaline Phosphatase 54 Total Protein 6.1 Albumin 3.5 Globulin 2.60 Albumin/Globulin Ratio 1.34 Subjective 24 Hr Interval Summary Free Text/Dictation seen with flat affect intermittently, (likely seizure activity). family at bedside. Exam/Review of Systems Exam Vitals Vital Signs Date Temp Pulse Resp B/P (MAP) Pulse Ox O2 O2 Flow FiO2 Time Delivery Rate 12/13/18 98.1 98 19 165/82 98 12:19 (109) 12/12/18 Room Air 04:00 Intake and Output 512/12/18 12/13/18 1515:00 23:00 07:00 IntakeIntake Total 800 ml 900 ml OutputOutput Total 700 ml 2000 ml BalanceBalance 100 ml -1100 ml Constitutional: other (confused at times ) Respiratory: normal air movement Cardiovascular: irregular rhythm Gastrointestinal: soft, non-tender Extremities: edema (BLE ) Neurological: nl speech Results Results 24hrs Laboratory Tests Test 12/12/18 17:29 12/13/18 11:59 Phenytoin (Dilantin) Level 8.8 L 7.5 L Sodium Level 140 Potassium Level 3.5 Chloride Level 105 # Carbon Dioxide Level 27 Anion Gap 8 Blood Urea Nitrogen 14 Creatinine 0.71 Est Glomerular Filtrat Rate mL/min > 60 Glucose Level 115 Calcium Level 8.8 Total Bilirubin 0.5 Direct Bilirubin 0.00 Indirect Bilirubin 0.5 Aspartate Amino Transf (AST/SGOT) 49 H Alanine Aminotransferase (ALT/SGPT) 95 H Alkaline Phosphatase 54 Total Protein 6.1 Albumin 3.5 Globulin 2.60 Albumin/Globulin Ratio 1.34 Medications Medication Current Medications Potassium Chloride/Sodium Chloride 1,000 ml @ 100 mls/hr Q10H IV Last administered on 12/13/18at 10:52; Admin Dose 100 MLS/HR; Start 12/11/18 at 18:50 IV Flush (NS 3 ml) 3 ml PER PROTOCOL IV ; Start 12/11/18 at 19:00 Ondansetron HCl (Zofran Inj) 4 mg Q6H PRN IV NAUSEA/VOMITING; Start 12/11/18 at 19:00 Acetaminophen (Tylenol Tab) 650 mg Q6H PRN PO .PAIN 1-3 OR TEMP; Start 12/11/18 at 19:00 Acetaminophen/ Hydrocodone Bitart ([place] (5/325)) 1 tab Q6H PRN PO .MOD PAIN 4- 6; Start 12/11/18 at 19:00 Morphine Sulfate (morphine) 2 mg Q4H PRN IV .SEVERE PAIN 7-10; Start 12/11/18 at 19:00 Docusate Sodium (Colace) 100 mg Q12H PRN PO .CONSTIPATION; Start 12/11/18 at 19:00 Zolpidem Tartrate (Ambien) 5 mg QHS PRN PO .INSOMNIA; Start 12/11/18 at 21:00 Enoxaparin Sodium (Lovenox) 40 mg DAILY SC Last administered on 12/13/18 10:35; Admin Dose 40 MG; Start 12/12/18 at 09:00 Alprazolam (Xanax) 0.25 mg TID PRN PO ANXIETY; Start 12/11/18 at 19:00 Folic Acid (Folic Acid) 1 mg DAILY PO Last administered on 12/13/18 10:32; Admin Dose 1 MG; Start 12/12/18 at 09:00 Hydralazine HCl (Apresoline) 100 mg TID PO Last administered on 12/13/18 10:39; Admin Dose 100 MG; Start 12/11/18 at 21:00 Lisinopril (Zestril) 20 mg BID PO Last administered on 12/13/18 10:40; Admin Dose 20 MG; Start 12/11/18 at 21:00 Methotrexate (Methotrexate) 20 mg Q7D PO Last administered on 12/11/18 22:46; Admin Dose 20 MG; Start 12/11/18 at 22:00 Phenytoin (Dilantin) 100 mg QID PO Last administered on 12/13/18 10:34; Admin Dose 100 MG; Start 12/11/18 at 21:00 Verapamil HCl (Isoptin Sr) 360 mg DAILY PO Last administered on 12/13/18 10:39; Admin Dose 360 MG; Start 12/12/18 at 09:00 Hydralazine HCl (Apresoline) 10 mg Q4H PRN IV SBP>170; Start 12/11/18 at 19:00 Diltiazem HCl 125 ml @ 5 mls/hr TITRATE IV Last administered on 12/13/18 09:50; Admin Dose 15 MLS/HR; Start 12/12/18 at 01:30 Lorazepam (Ativan) 1 mg Q4H PRN IV AGITATION/ANXIETY Last administered on 12/13/18 15:36; Admin Dose 1 MG; Start 12/12/18 at 05:00 Aspirin (Aspirin) 81 mg DAILY PO ; Start 12/13/18 at 12:30 Adenosine (Adenosine) 6 mg ONCE ONCE IV ; Start 12/13/18 at 16:00; Stop 12/13/18 at 16:01; Status FANNY RODRIGUEZ NP December 13, 2018 16:10
[2018-12-13] MEDS: ASPIRIN 81 MG TAB PO SCH (16:20)
[2018-12-13] MEDS ORDERED: METOPROLOL 5 MG INJ IV PRN (17:30)
[2018-12-13] MEDS: METOPROLOL 25 MG TAB PO SCH (20:53)
--- NOTE | 2018-12-13 23:50 | CONS ---
DATE OF ADMISSION: 12/11/2018 DATE OF CONSULTATION: 12/13/2018 REASON FOR CONSULTATION: Tachyarrhythmia, supraventricular tachycardia. REQUESTING PHYSICIAN: Joey Hall M.D. from the hospitalist service. HISTORY OF PRESENT ILLNESS: Mr. Silverio is a 48-year-old male with history of hypertension, morbid obesity, seizure disorder who presented with recurrent seizures after not having seizures that has been starting on for some time, ongoing for approximately 2 to 3 weeks prior to admit. The patient's seizures would be known by the fact that he would lose focus, begin lip smacking and also ramble, according to his . The patient did present to the ER and underwent a CT which was unremarkable and discharged to outpatient followup. After returning home, the patient had a recurrent confusion and fallen around the pool and hit his head. He had a repeat CT with no significant abnormalities, but for this reason he represented to the hospital. The patient has been consulted by neurology services and continued on Dilantin, continued to have seizures and in the setting. The patient was admitted to telemetry and has also been having recurrent episodes of supraventricular tachyarrhythmias with rates as high as 170s to 180s with at times being very regular and at times becoming irregular and showing a baseline consistent with atrial fibrillation as well as at times with atrial flutter. Today, the patient was having recurrent seizures and was being maintained on diltiazem drip per primary treating team but continued to have rapid rates into the 170s to 180s. Given these findings, cardiac consultation has been requested. At this time, I did have additionally give the patient IV push beta sharon after adenosine without success and after receiving beta sharon, the patient had a significant decrease in heart rate and conversion back to a sinus rhythm, where he remains at this time. PAST MEDICAL HISTORY: As above in HPI. MEDICATIONS CURRENTLY IN HOSPITAL: 1. Aspirin 81 mg daily. 2. Lovenox subQ daily. 3. Folic acid. 4. Verapamil 60 mg daily. 5. Diltiazem. 6. Methotrexate. 7. Ambien. 8. Hydralazine 100 mg t.i.d. 9. Lisinopril 20 mg p.o. b.i.d. 10. mg q.i.d. ALLERGIES: NO KNOWN DRUG ALLERGIES. SOCIAL HISTORY: No current tobacco, ETOH or illicit drug use. FAMILY HISTORY: No history of sudden cardiac or early CAD. REVIEW OF SYSTEMS: As above in HPI. CONSTITUTIONAL: No fevers, chills. PULMONARY: No current signs of respiratory compromise. GASTROINTESTINAL: No vomiting. GENITOURINARY: No hematuria. MUSCULOSKELETAL: Degenerative joint disease. PSYCHIATRIC: The patient has depression. NEUROLOGIC: No documented history of CVA. ENDOCRINE: No history of diagnosed thyroid disease. PHYSICAL EXAMINATION: VITAL SIGNS: Temperature 98.4, blood pressure most recently of 138/66, pulse currently in sinus rhythm in the 60s after being in rapid AFib in the 160s. NECK: JVP approximately 8 cm water. CHEST: Fair air movement throughout. HEART: Regular rate and rhythm. Normal S1, S2, I/ systolic murmur, nondisplaced PMI. ABDOMEN: Positive bowel sounds, soft. EXTREMITIES: No significant pitting edema, 1+ pulses bilateral posterior tibial. LABORATORIES: Most recent from today, sodium 140, potassium 3.5, creatinine 0.7, BUN of 14, AST 49, ALT 95. TSH 0.733, free T4 5.04, mildly elevated. IMAGING STUDIES: A brain MRI from the revealing significant limited evaluation due to extensive motion artifact. No evidence of acute intracranial abnormality, mild punctate periventricular subcortical white matter lesions. A chest x-ray revealed no radiographic evidence of acute cardiopulmonary abnormalities and a repeat head CT revealed no acute intracranial abnormalities, normal appearance of brain parenchyma. ELECTROCARDIOGRAM: From the at that time had revealed a rhythm most consistent with atrial fibrillation, rate of 128, normal axis, normal intervals, nonspecific ST-T wave abnormalities, single PVC. IMPRESSION: 1. Supraventricular tachycardias with most recent rhythm consistent with atrial fibrillation, atrial flutter and at times become consistent with atrial tachycardia, likely driven by the patient's recurrent seizures, currently in sinus rhythm. 2. Hypertension. Also, likely reflective of the patient's seizures. 3. Seizure disorder with recurrent seizures. 4. Psoriatic arthritis. 5. Morbid obesity. 6. Hyponatremia, now improved. RECOMMENDATIONS: 1. At this time, the patient has been maintained on a diltiazem drip and will start standing beta sharon for this patient and recurrent uncontrolled bouts, we will consider a digoxin load and likely initiation of amiodarone which can be done IV in the floor as necessary. At this time, the patient's CHADS-VASc score is approximately 1 and therefore he is reasonable for either aspirin or systemic anticoagulation. At this time, the patient is on aspirin with very low dose of Lovenox which I will continue in the setting of recurrent seizures and progress to more ongoing true systemic anticoagulation for ongoing recurrent bouts of atrial fibrillation. 2. Continue to follow the patient's thyroid state to assure that the subclinical hyperthyroid is not contributing to bouts of tachycardia in addition to seizures. 3. Continue the patient's p.o. verapamil at this time with probability to hold the patient's diltiazem drip and follow for recurrent bouts of tachyarrhythmias. 4. Continue the patient's current hydralazine additionally for blood pressure control and Zestril and we will continue the patient's Dilantin and p.r.n. Ativan for recurrent seizures per treating neurologist. 5. We will check a 2D echo to further assess patient's ejection fraction, wall motion, and left atrial size. Thank you for allowing me to take part in the care of this patient. I will continue to follow along very closely with you with recommendations to be made as the patient progresses through his inpatient hospital clinical course. Dictated By: JUWAN WILSON/RIAZ Conf#: [id number] DID#: [id number] CC: VINH CRAMER MD;*EndCC* MTDD
[2018-12-14] VITALS (11 sets, daily range): BP systolic 124–144; BP diastolic 69–77; PULSE 73–168; RESP 20
--- NOTE | 2018-12-14 06:24 | EEG ---
EEG NOTE Report Details DATE OF TEST: 12/12 HISTORY: The patient is a 48-year-old M who presents with breakthrough seizures. This EEG is requested to evaluate for subclinical seizures.. SEDATION: None. CONDITIONS OF RECORDING: This EEG was recorded digitally on the [employer] machine, using the International 10-20 System of electrodes plus anterior temporals and [place]. STATES SAMPLED: Wakefulness and drowsiness. FINDINGS: During wakefulness, there is a 7 Hz posterior dominant rhythm. The normal [id number] frequency-amplitude gradient was absent. There is excess beta activity. Photic stimulation does not elicit any definite driving responses or epileptiform discharges. Hyperventilation was not performed. The patient became drowsy but did not pass into sleep. There was a R frontal onset electrographic seizure with unclear clinical c orrelate.. IMPRESSION: Abnormal electroencephalogram due to: a right frontal onset electrographic seizure with unclear clinical correlate...and excess beta activity. COMMENT: Excess beta activity may be attributable to the use of medications, including but not limited to benzodiazepines or barbiturates. AUSTEN WEBB December 14, 2018 06:24
[2018-12-14] MEDS: NS + KCL 20 MEQ 1,000 ML IV SCH ×2 (06:47→16:58)
[2018-12-14] MEDS: ALPRAZOLAM 0.25 MG TAB PO PRN ×2 (08:56→16:50)
[2018-12-14] MEDS: LORAZEPAM 2 MG INJ IV PRN ×2 (08:57→16:50)
[2018-12-14] MEDS ORDERED: ADALIMUMAB 40 MG/0.4 ML SC SCH (09:00)
[2018-12-14] MEDS ORDERED: PREFILLED SC SCH (09:00)
[2018-12-14] MEDS: DILTIAZEM-D5W 125MG/125ML DRIP 125 ML IV SCH ×2 (09:20→20:57)
[2018-12-14] MEDS: FOLIC ACID 1 MG TAB PO SCH (09:21)
[2018-12-14] MEDS: METOPROLOL 25 MG TAB PO SCH (09:22)
[2018-12-14] MEDS: ASPIRIN 81 MG TAB PO SCH (09:23)
[2018-12-14] MEDS: LISINOPRIL 20 MG TAB PO SCH ×2 (09:23→20:57)
[2018-12-14] MEDS: VERAPAMIL (SR) 180 MG TAB PO SCH (09:23)
[2018-12-14] MEDS: PHENYTOIN 100 MG CAP PO SCH ×4 (09:24→20:56)
[2018-12-14] MEDS: ENOXAPARIN 40 MG/0.4 ML SYG SC SCH (09:36)
--- NOTE | 2018-12-14 12:40 | CONS ---
Assessment/Plan Assessment/Plan Hospital Course 48 yo M with hx of epilepsy and multiple other comorbidities who presents following a cluster of seizure episodes... for which neurology is consulted. It is likely multifactorial in the context of medication noncompliance and systemic illness. MRI brain is without acute intracranial pathology. EEG is notable for R frontal onset electrographic seizures P: Cont maintenance dilantin 100mg QID per ops, for now; titrate PRN to goal level 10-20 Ativan IV PRN prolonged seizure or for cluster Cont medical management per primary Reorient as necessary Limit sedating medications where possible PT/OT as necessary Will follow clinically Consultation Date/Type/Reason Admit Date/Time December 11, 2018 at 18:26 Type of Consult Neurology Reason for Consultation seizure clusters Requesting Provider: VINH CRAMER Date/Time of Note DATE: 12/14/18 TIME: 12:40 24 HR Interval Summary Free Text/Dictation Continues acute care. Pt reportedly had one seizure yesterday afternoon. S/p dilantin load. No further seizure episodes overnight or today. Exam Vital Signs Vitals Vital Signs Date Temp Pulse Resp B/P (MAP) Pulse Ox O2 O2 Flow FiO2 Time Delivery Rate 12/14/18 99.0 73 20 124/70 96 Nasal 11:57 (88) Cannula 12/13/18 2.0 21:39 Intake and Output 12/13/18 12/13/18 12/14/18 1515:00 23:00 07:00 IntakeIntake Total 595 ml 2310 ml 480 ml OutputOutput Total 900 ml 1000 ml BalanceBalance 595 ml 1410 ml -520 ml Exam PE: Gen Appearance: No Apparent Distress HEENT: Normocephalic Cardiovascular: Regular rate Lungs: Clear bilaterally Abdomen: Soft Extremities: Dry NE: The patient was awake and alert. Language was normal. Fund of knowledge was adequate. Pupils were equal and reactive to light. There was no afferent pupillary defect. Visual mora were normal. Funduscopic examination was limited. Extra-ocular movements were full. Ptosis was absent. There was no nystagmus. Facial sensation was normal. Face was symmetric with normal strength. Hearing was intact. Palate movements were normal. Neck strength was normal. There was normal tongue bulk and speed of movement. Tone was normal. Muscle bulk was normal. I did not see fasciculations. Arms and legs were symmetric. Vibration sensation was normal. Temperature and pinprick sensation was normal. Rapid alternating movements were normal. There was no dysmetria. There was no intention tremor. Gait was deferred due to bedrest. Arm and leg reflexes were 2+ and symmetric. Valdez's sign was absent. Plantar responses were flexor. DARIN CARRANZA NP December 14, 2018 12:40
--- NOTE | 2018-12-14 15:18 | PN ---
Date/Time of Note Date/Time of Note DATE: 12/14/18 TIME: 15:13 Assessment/Plan VTE Prophylaxis Risk score (from [facility])>0 risk: 2 SCD applied (from [facility]): No SCD contraindicated: low risk/ambulating Pharmacological prophylaxis: LMWH Lines/Catheters IV Catheter Type (from [facility]): Peripheral IV Urinary Cath still in place: No Assessment/Plan Hospital Course Assessment and plan 1. Aflutter/Afib - continue diltiazem/metoprolol - cardiology following - echo pending 1. Seizure disorder. - Continue dilantin per nuerology - We will continue the patient on seizure precautions. Ativan as needed. - EEG report: Abnormal electroencephalogram due to: a right frontal onset electrographic seizure with unclear clinical correlate...and excess beta acti vity. - 2. Hypertension. - Will continue on antihypertensive - Will adjust as needed. 3. History of psoriatic arthritis. - Continue methotrexate. - takes humira at home 4. Morbid obesity. - Weight reduction was advised. 5. Hyponatremia. - Monitor level. - improved 6. Hypokalemia. - Will replace electrolytes and monitor. Disposition and plan. echo pending, HR more controlled. Await for improvement of seizure activity (dilantin level now therapeutic). continue inhouse monitoring Discussed plan of care with Dr. Chun Result Diagram: 12/12/18 0625 12/14/18 0614 Results 24hrs Laboratory Tests Test 12/13/18 15:55 12/13/18 16:06 12/13/18 16:07 12/13/18 18:06 Bedside Glucose 114 Magnesium Level 2.4 Phenytoin (Dilantin) 6.9 L Level Troponin I < 0.012 Test 12/14/18 00:28 12/14/18 06:14 Troponin I < 0.012 < 0.012 Sodium Level 142 Potassium Level 3.6 Chloride Level 109 Carbon Dioxide Level 25 Anion Gap 8 Blood Urea Nitrogen 15 Creatinine 0.79 Est Glomerular > 60 Filtrat Rate mL/min Glucose Level 124 Calcium Level 8.2 L Phenytoin (Dilantin) 12.7 Level Subjective 24 Hr Interval Summary Free Text/Dictation no s/s of distress noted at this time Exam/Review of Systems Exam Vitals Vital Signs Date Temp Pulse Resp B/P (MAP) Pulse Ox O2 O2 Flow FiO2 Time Delivery Rate 12/14/18 98.1 83 20 144/73 96 Room Air 15:07 (96) 12/13/18 2.0 21:39 Intake and Output 12/13/18 12/13/18 12/14/18 1515:00 23:00 07:00 IntakeIntake Total 595 ml 2310 ml 480 ml OutputOutput Total 900 ml 1000 ml BalanceBalance 595 ml 1410 ml -520 ml Constitutional: alert, other (transient confusion likey from seizure ) Psych: nl mood/affect Neck: supple Respiratory: clear to auscultation, normal air movement Cardiovascular: irregular rhythm Musculoskeletal: swelling (ble minimally ) Neurological: nl speech Results Results 24hrs Laboratory Tests Test 12/13/18 15:55 12/13/18 16:06 12/13/18 16:07 12/13/18 18:06 Bedside Glucose 114 Magnesium Level 2.4 Phenytoin (Dilantin) 6.9 L Level Troponin I < 0.012 Test 12/14/18 00:28 12/14/18 06:14 Troponin I < 0.012 < 0.012 Sodium Level 142 Potassium Level 3.6 Chloride Level 109 Carbon Dioxide Level 25 Anion Gap 8 Blood Urea Nitrogen 15 Creatinine 0.79 Est Glomerular > 60 Filtrat Rate mL/min Glucose Level 124 Calcium Level 8.2 L Phenytoin (Dilantin) 12.7 Level Medications Medication Current Medications Potassium Chloride/Sodium Chloride 1,000 ml @ 100 mls/hr Q10H IV Last administered on 12/14/18at 06:47; Admin Dose 100 MLS/HR; Start 12/11/18 at 18:50 IV Flush (NS 3 ml) 3 ml PER PROTOCOL IV ; Start 12/11/18 at 19:00 Ondansetron HCl (Zofran Inj) 4 mg Q6H PRN IV NAUSEA/VOMITING; Start 12/11/18 at 19:00 Acetaminophen (Tylenol Tab) 650 mg Q6H PRN PO .PAIN 1-3 OR TEMP; Start 12/11/18 at 19:00 Acetaminophen/ Hydrocodone Bitart ([place] (5/325)) 1 tab Q6H PRN PO .MOD PAIN 4- 6; Start 12/11/18 at 19:00 Morphine Sulfate (morphine) 2 mg Q4H PRN IV .SEVERE PAIN 7-10; Start 12/11/18 at 19:00 Docusate Sodium (Colace) 100 mg Q12H PRN PO .CONSTIPATION; Start 12/11/18 at 19:00 Zolpidem Tartrate (Ambien) 5 mg QHS PRN PO .INSOMNIA; Start 12/11/18 at 21:00 Enoxaparin Sodium (Lovenox) 40 mg DAILY SC Last administered on 12/14/18 09:3 6; Admin Dose 40 MG; Start 12/12/18 at 09:00 Alprazolam (Xanax) 0.25 mg TID PRN PO ANXIETY Last administered on 12/14/18 08:56; Admin Dose 0.25 MG; Start 12/11/18 at 19:00 Folic Acid (Folic Acid) 1 mg DAILY PO Last administered on 12/14/18 09:21; Admin Dose 1 MG; Start 12/12/18 at 09:00 Hydralazine HCl (Apresoline) 100 mg TID PO Last administered on 12/14/18 12:38; Admin Dose 100 MG; Start 12/11/18 at 21:00 Lisinopril (Zestril) 20 mg BID PO Last administered on 12/14/18 09:23; Admin Dose 20 MG; Start 12/11/18 at 21:00 Methotrexate (Methotrexate) 20 mg Q7D PO Last administered on 12/11/18 22:46; Admin Dose 20 MG; Start 12/11/18 at 22:00 Phenytoin (Dilantin) 100 mg QID PO Last administered on 12/14/18 12:37; Admin Dose 100 MG; Start 12/11/18 at 21:00 Verapamil HCl (Isoptin Sr) 360 mg DAILY PO Last administered on 12/14/18 09:23; Admin Dose 360 MG; Start 12/12/18 at 09:00 Hydralazine HCl (Apresoline) 10 mg Q4H PRN IV SBP>170; Start 12/11/18 at 19:00 Diltiazem HCl 125 ml @ 5 mls/hr TITRATE IV Last administered on 12/14/18 09:20; Admin Dose 5 MLS/HR; Start 12/12/18 at 01:30 Lorazepam (Ativan) 1 mg Q4H PRN IV AGITATION/ANXIETY Last administered on 12/14/18 08:57; Admin Dose 1 MG; Start 12/12/18 at 05:00 Aspirin (Aspirin) 81 mg DAILY PO Last administered on 12/14/18 09:23; Admin Dose 81 MG; Start 12/13/18 at 12:30 Metoprolol Tartrate (Lopressor) 5 mg Q4H PRN IV HR>110 Hold SBP<100 Last administered on 12/14/18 04:04; Admin Dose 5 MG; Start 12/13/18 at 17:30 Metoprolol Tartrate (Lopressor) 25 mg BID PO Last administered on 12/14/18 09:22; Admin Dose 25 MG; Start 12/13/18 at 21:00 Patient Own Medication 1 ea Q14D@0900 SC Last administered on 12/14/18 09:24; Admin Dose 1 EA; Start 12/14/18 at 09:00 FANNY CARBALLO NP December 14, 2018 15:18
--- NOTE | 2018-12-14 16:48 | CONS ---
Assessment/Plan Assessment/Plan Hospital Course (Demo Recall) IMPRESSION: 1. Supraventricular tachycardias with most recent rhythm consistent with atrial fibrillation, atrial flutter and at times become consistent with atrial tachycardia, likely driven by the patient's recurrent seizures, currently in sinus rhythm.- had short run in very early am hours and one recurrence since 2. Hypertension. Also, likely reflective of the patient's seizures. 3. Seizure disorder with recurrent seizures s/p EEG being followed by neuro 4. Psoriatic arthritis. 5. Morbid obesity. 6. Hyponatremia, now improved. REcc: -Tele -Continue BB with slight uptitration to suppress further bouts of SVT -Contineu asa and low dose lovenox -will follow-up echo onding today -continue hydralazine/zestril -Contineu dilantin with ongoing neuro eval and treatment Consultation Date/Type/Reason Admit Date/Time December 11, 2018 at 18:26 Initial Consult Date 12/13/18 Type of Consult Cardiology Reason for Consultation AF/AFL Requesting Provider: VINH CRAMER Date/Time of Note DATE: 12/14/18 TIME: 16:44 Exam/Review of Systems Vital Signs Vitals Vital Signs Date Temp Pulse Resp B/P (MAP) Pulse Ox O2 O2 Flow FiO2 Time Delivery Rate 12/14/18 98.1 83 20 144/73 96 Room Air 15:07 (96) 12/14/18 2.0 08:25 Intake and Output 12/13/18 12/13/18 12/14/18 1414:59 22:59 06:59 IntakeIntake Total 595 ml 2310 ml 480 ml OutputOutput Total 900 ml 1000 ml BalanceBalance 595 ml 1410 ml -520 ml Exam Exam Review of Systems: CONSTITUTIONAL: No fevers, chills. PULMONARY: No sob CARDIOVASCULAR: No chest pain/palpitations GASTROINTESTINAL: No nausea/vomiting. GENITOURINARY: No hematuria/dysuria. MUSCULOSKELETAL: No myagias/arthalgias. PSYCHIATRIC: The patient denies depression. NEUROLOGIC: No weakness Constitutional: alert, oriented Psych: no complaints ENMT: mucosa pink and moist Neck: supple, jvd (9 cm water) Respiratory: clear to auscultation Cardiovascular: regular rate and rhythm Gastrointestinal: soft, non-tender Musculoskeletal: muscle tone (normal) Extremities: edema (none) Neurological: other (no current seizures) Labs Result Diagram: 12/12/18 0625 12/14/18 0614 Results 24hrs Laboratory Tests Test 12/13/18 18:06 12/14/18 00:28 12/14/18 06:14 Troponin I < 0.012 < 0.012 < 0.012 Sodium Level 142 Potassium Level 3.6 Chloride Level 109 Carbon Dioxide Level 25 Anion Gap 8 Blood Urea Nitrogen 15 Creatinine 0.79 Est Glomerular Filtrat Rate mL/min > 60 Glucose Level 124 Calcium Level 8.2 L Phenytoin (Dilantin) Level 12.7 Medications Medications Current Medications Potassium Chloride/Sodium Chloride 1,000 ml @ 100 mls/hr Q10H IV Last administered on 12/14/18at 06:47; Admin Dose 100 MLS/HR; Start 12/11/18 at 18:50 IV Flush (NS 3 ml) 3 ml PER PROTOCOL IV ; Start 12/11/18 at 19:00 Ondansetron HCl (Zofran Inj) 4 mg Q6H PRN IV NAUSEA/VOMITING; Start 12/11/18 at 19:00 Acetaminophen (Tylenol Tab) 650 mg Q6H PRN PO .PAIN 1-3 OR TEMP; Start 12/11/18 at 19:00 Acetaminophen/ Hydrocodone Bitart ([place] (5/325)) 1 tab Q6H PRN PO .MOD PAIN 4- 6; Start 12/11/18 at 19:00 Morphine Sulfate (morphine) 2 mg Q4H PRN IV .SEVERE PAIN 7-10; Start 12/11/18 at 19:00 Docusate Sodium (Colace) 100 mg Q12H PRN PO .CONSTIPATION; Start 12/11/18 at 19:00 Zolpidem Tartrate (Ambien) 5 mg QHS PRN PO .INSOMNIA; Start 12/11/18 at 21:00 Enoxaparin Sodium (Lovenox) 40 mg DAILY SC Last administered on 12/14/18at 09:36; Admin Dose 40 MG; Start 12/12/18 at 09:00 Alprazolam (Xanax) 0.25 mg TID PRN PO ANXIETY Last administered on 12/14/18at 08:56; Admin Dose 0.25 MG; Start 12/11/18 at 19:00 Folic Acid (Folic Acid) 1 mg DAILY PO Last administered on 12/14/18 09:21; Admin Dose 1 MG; Start 12/12/18 at 09:00 Hydralazine HCl (Apresoline) 100 mg TID PO Last administered on 12/14/18 12:38; Admin Dose 100 MG; Start 12/11/18 at 21:00 Lisinopril (Zestril) 20 mg BID PO Last administered on 12/14/18 09:23; Admin Dose 20 MG; Start 12/11/18 at 21:00 Methotrexate (Methotrexate) 20 mg Q7D PO Last administered on 12/11/18 22:46; Admin Dose 20 MG; Start 12/11/18 at 22:00 Phenytoin (Dilantin) 100 mg QID PO Last administered on 12/14/18 16:42; Admin Dose 100 MG; Start 12/11/18 at 21:00 Verapamil HCl (Isoptin Sr) 360 mg DAILY PO Last administered on 12/14/18 09:23; Admin Dose 360 MG; Start 12/12/18 at 09:00 Hydralazine HCl (Apresoline) 10 mg Q4H PRN IV SBP>170; Start 12/11/18 at 19:00 Diltiazem HCl 125 ml @ 5 mls/hr TITRATE IV Last administered on 12/14/18 09:20; Admin Dose 5 MLS/HR; Start 12/12/18 at 01:30 Lorazepam (Ativan) 1 mg Q4H PRN IV AGITATION/ANXIETY Last administered on 11/20 08:57; Admin Dose 1 MG; Start 12/12/18 at 05:00 Aspirin (Aspirin) 81 mg DAILY PO Last administered on 12/14/18 09:23; Admin Dose 81 MG; Start 12/13/18 at 12:30 Metoprolol Tartrate (Lopressor) 5 mg Q4H PRN IV HR>110 Hold SBP<100 Last administered on 12/14/18 04:04; Admin Dose 5 MG; Start 12/13/18 at 17:30 Metoprolol Tartrate (Lopressor) 25 mg BID PO Last administered on 12/14/18 09:22; Admin Dose 25 MG; Start 12/13/18 at 21:00 Patient Own Medication 1 ea Q14D@0900 SC Last administered on 5/26/19at 09:24; Admin Dose 1 EA; Start 12/14/18 at 09:00 JUWAN CHAN December 14, 2018 16:48
--- NOTE | 2018-12-14 19:28 | RADRPT ---
Vent Rate: 82 bpm RR Interval: 732 msec NE Interval: 135 msec QRS Duration: 88 msec QT Interval: 386 msec QTC Interval: 451 msec P-R-T [place]: 33 - 43 - 38 degrees Sinus rhythm...normal P axis, V-rate 50- 99 Low voltage, precordial leads...precordial leads <1.0mV Electronically Signed By: Mateo Steiner
[2018-12-14] MEDS: METOPROLOL 50 MG TAB PO SCH (20:56)
[2018-12-15] VITALS (9 sets, daily range): BP systolic 128–143; BP diastolic 70–96; PULSE 70–94; RESP 20
[2018-12-15] MEDS: DILTIAZEM-D5W 125MG/125ML DRIP 125 ML IV SCH (05:17)
[2018-12-15] MEDS: VERAPAMIL (SR) 180 MG TAB PO SCH (10:13)
[2018-12-15] MEDS: FOLIC ACID 1 MG TAB PO SCH (10:14)
[2018-12-15] MEDS: PHENYTOIN 100 MG CAP PO SCH (10:14)
[2018-12-15] MEDS: ASPIRIN 81 MG TAB PO SCH (10:14)
[2018-12-15] MEDS: LISINOPRIL 20 MG TAB PO SCH ×2 (10:15→20:45)
[2018-12-15] MEDS: METOPROLOL 50 MG TAB PO SCH ×2 (10:16→20:45)
[2018-12-15] MEDS: ENOXAPARIN 40 MG/0.4 ML SYG SC SCH (10:22)
--- NOTE | 2018-12-15 10:33 | CONS ---
Assessment/Plan Assessment/Plan Hospital Course 48 yo M with hx of epilepsy and multiple other comorbidities who presents following a cluster of seizure episodes... for which neurology is consulted. It is likely multifactorial in the context of medication noncompliance and systemic illness. MRI brain is without acute intracranial pathology. EEG is notable for R frontal onset electrographic seizures P: Increase maintenance dilantin to 200mg TID for now; titrate PRN to goal level 10-20 Ativan IV PRN prolonged seizure or for cluster Cont medical management per primary Reorient as necessary Limit sedating medications where possible PT/OT as necessary Will follow clinically Consultation Date/Type/Reason Admit Date/Time December 11, 2018 at 18:26 Type of Consult Neurology Reason for Consultation seizure clusters Requesting Provider: VINH CRAMER Date/Time of Note DATE: 12/15/18 TIME: 10:33 24 HR Interval Summary Free Text/Dictation Continues acute care. No further seizure episodes reported. Dilantin level downtrending. Pt's stated that the pt was taking dilantin 600mg daily at home. Exam Vital Signs Vitals Vital Signs Date Temp Pulse Resp B/P (MAP) Pulse Ox O2 O2 Flow FiO2 Time Delivery Rate 12/15/18 72 08:00 12/15/18 97.6 20 143/89 96 Room Air 07:50 (107) 12/14/18 2.0 21:13 Intake and Output 12/14/18 12/14/18 12/15/18 1515:00 23:00 07:00 IntakeIntake Total 1960 ml 825 ml OutputOutput Total 1050 ml 1100 ml BalanceBalance 910 ml -275 ml Exam PE: Gen Appearance: No Apparent Distress HEENT: Normocephalic Cardiovascular: Regular rate Lungs: Clear bilaterally Abdomen: Soft Extremities: Dry NE: The patient was awake and alert. Language was normal. Fund of knowledge was adequate. Pupils were equal and reactive to light. There was no afferent pupillary defect. Visual mora were normal. Funduscopic examination was limited. Extra-ocular movements were full. Ptosis was absent. There was no nystagmus. Facial sensation was normal. Face was symmetric with normal strength. Hearing was intact. Palate movements were normal. Neck strength was normal. There was normal tongue bulk and speed of movement. Tone was normal. Muscle bulk was normal. I did not see fasciculations. Arms and legs were symmetric. Vibration sensation was normal. Temperature and pinprick sensation was normal. Rapid alternating movements were normal. There was no dysmetria. There was no intention tremor. Gait was deferred due to bedrest. Arm and leg reflexes were 2+ and symmetric. Valdez's sign was absent. Plantar responses were flexor. DARIN CARRANZA NP December 15, 2018 10:33
--- NOTE | 2018-12-15 12:38 | CONS ---
Assessment/Plan Assessment/Plan Hospital Course (Demo Recall) IMPRESSION: 1. Supraventricular tachycardias with most recent rhythm consistent with atrial fibrillation, atrial flutter and at times become consistent with atrial tachycardia, likely driven by the patient's recurrent seizures, currently in sinus rhythm.- had short run in very early am hours and one recurrence since 2. Hypertension. Also, likely reflective of the patient's seizures. 3. Seizure disorder with recurrent seizures s/p EEG being followed by neuro 4. Psoriatic arthritis. 5. Morbid obesity. 6. Hyponatremia, now improved. REcc: -Tele -Continue BB and will add low dose CCB for synergy in suppressing further bouts of SVT now that dilt drip stopped -Contineu asa and low dose lovenox -continue hydralazine/zestril -Contineu dilantin with ongoing neuro eval and treatment -check echo Consultation Date/Type/Reason Admit Date/Time December 11, 2018 at 18:26 Initial Consult Date 12/13/18 Type of Consult Cardiology Reason for Consultation SVT Requesting Provider: VINH CRAMER Date/Time of Note DATE: 12/15/18 TIME: 12:37 Exam/Review of Systems Vital Signs Vitals Vital Signs Date Temp Pulse Resp B/P (MAP) Pulse Ox O2 O2 Flow FiO2 Time Delivery Rate 12/15/18 98.3 70 20 131/70 93 11:57 (90) 12/15/18 Room Air 07:50 12/14/18 2.0 21:13 Intake and Output 12/14/18 12/14/18 12/15/18 1515:00 23:00 07:00 IntakeIntake Total 1960 ml 825 ml OutputOutput Total 1050 ml 1100 ml BalanceBalance 910 ml -275 ml Exam Exam Review of Systems: CONSTITUTIONAL: No fevers, chills. PULMONARY: No sob CARDIOVASCULAR: No chest pain/palpitations GASTROINTESTINAL: No nausea/vomiting. GENITOURINARY: No hematuria/dysuria. MUSCULOSKELETAL: No myagias/arthalgias. PSYCHIATRIC: The patient denies depression. NEUROLOGIC: No weakness Constitutional: alert Psych: no complaints Head: normocephalic ENMT: mucosa pink and moist Neck: supple, jvd (9 cm water) Respiratory: diminished breath sounds (at bases/B) Cardiovascular: regular rate and rhythm Gastrointestinal: soft, non-tender Musculoskeletal: muscle tone (normal) Extremities: edema (trace) Labs Result Diagram: 12/12/18 0625 12/15/18 0655 Results 24hrs Laboratory Tests Test 12/15/18 06:55 Sodium Level 140 Potassium Level 3.7 Chloride Level 109 Carbon Dioxide Level 25 Anion Gap 6 Blood Urea Nitrogen 18 Creatinine 0.85 Est Glomerular Filtrat Rate mL/min > 60 Glucose Level 109 Calcium Level 8.5 Phenytoin (Dilantin) Level 11.6 Medications Medications Current Medications IV Flush (NS 3 ml) 3 ml PER PROTOCOL IV ; Start 12/11/18 at 19:00 Ondansetron HCl (Zofran Inj) 4 mg Q6H PRN IV NAUSEA/VOMITING; Start 12/11/18 at 19:00 Acetaminophen (Tylenol Tab) 650 mg Q6H PRN PO .PAIN 1-3 OR TEMP; Start 12/11/18 at 19:00 Acetaminophen/ Hydrocodone Bitart ([place] (5/325)) 1 tab Q6H PRN PO .MOD PAIN 4- 6; Start 12/11/18 at 19:00 Morphine Sulfate (morphine) 2 mg Q4H PRN IV .SEVERE PAIN 7-10; Start 12/11/18 at 19:00 Docusate Sodium (Colace) 100 mg Q12H PRN PO .CONSTIPATION; Start 12/11/18 at 19:00 Zolpidem Tartrate (Ambien) 5 mg QHS PRN PO .INSOMNIA; Start 12/11/18 at 21:00 Enoxaparin Sodium (Lovenox) 40 mg DAILY SC Last administered on 12/15/18at 10:22; Admin Dose 40 MG; Start 12/12/18 at 09:00 Folic Acid (Folic Acid) 1 mg DAILY PO Last administered on 12/15/18at 10:14; Admin Dose 1 MG; Start 12/12/18 at 09:00 Hydralazine HCl (Apresoline) 100 mg TID PO Last administered on 12/15/18at 10:15; Admin Dose 100 MG; Start 12/11/18 at 21:00 Lisinopril (Zestril) 20 mg BID PO Last administered on 12/15/18at 10:15; Admin Dose 20 MG; Start 12/11/18 at 21:00 Methotrexate (Methotrexate) 20 mg Q7D PO Last administered on 12/11/18 22:46; Admin Dose 20 MG; Start 12/11/18 at 22:00 Verapamil HCl (Isoptin Sr) 360 mg DAILY PO Last administered on 12/15/18 10:13; Admin Dose 360 MG; Start 12/12/18 at 09:00 Hydralazine HCl (Apresoline) 10 mg Q4H PRN IV SBP>170; Start 12/11/18 at 19:00 Diltiazem HCl 125 ml @ 5 mls/hr TITRATE IV Last administered on 12/15/18 05:17; Admin Dose 15 MLS/HR; Start 12/12/18 at 01:30 Lorazepam (Ativan) 1 mg Q4H PRN IV SEIZURES Last administered on 12/14/18 16:50; Admin Dose 1 MG; Start 12/12/18 at 05:00 Aspirin (Aspirin) 81 mg DAILY PO Last administered on 12/15/18 10:14; Admin Dose 81 MG; Start 12/13/18 at 12:30 Metoprolol Tartrate (Lopressor) 5 mg Q4H PRN IV HR>110 Hold SBP<100 Last administered on 12/14/18 04:04; Admin Dose 5 MG; Start 12/13/18 at 17:30 Patient Own Medication 1 ea Q14D@0900 SC Last administered on 12/14/18 09:24; Admin Dose 1 EA; Start 12/14/18 at 09:00 Metoprolol Tartrate (Lopressor) 50 mg BID PO Last administered on 12/15/18 10:16; Admin Dose 50 MG; Start 12/14/18 at 21:00 Phenytoin (Dilantin) 200 mg Q8 IV ; Start 12/15/18 at 14:00 JUWAN CHAN December 15, 2018 12:38
--- NOTE | 2018-12-15 12:58 | PN ---
Date/Time of Note Date/Time of Note DATE: 12/15/18 TIME: 12:57 Assessment/Plan VTE Prophylaxis Risk score (from Ns)>0 risk: 1 SCD applied (from Ns): No SCD contraindicated: other Pharmacological prophylaxis: LMWH Lines/Catheters IV [facility] Type [facility]from [facility] Peripheral IV Urinary Cath still in place: No Assessment/Plan Hospital Course SUBJECTIVE: Patient with no further seizure activities over 24 hours. No palpitation reported. OBJECTIVE: Vital signs-see below PHYSICAL EXAM: Constitutional:obese male ,not in acute distress. HEENT: Head atraumatic and normocephalic. Eyes: Extraocular muscles intact. Anicteric sclerae. Pupils equal bilaterally, reactive to light. NECK: Supple without lymph node. CHEST: Clear and good breath sounds equally. No wheezing. No rhonchi. HEART: Irregular rate and rhythm. ABDOMEN: Soft/non tender with no rebound tenderness. Bowel sounds were present. EXTREMITIES: No cyanosis, clubbing or edema. NEUROLOGIC: Alert and oriented x3. No focal deficit. No sensory deficit. PSYCHOSOCIAL: No signs of depression. INTEGUMENTARY: No open wounds. ASSESSMENT AND PLAN:48 yo obese M w/seizure dsiorders,arthritis htn, anxiety, he re with breakthrough seizures. Breakthrough seizures -Being followed by neurology and on IV Dilantin. -No further seizure activities reported over 24 hours. -MRI unremarkable Atrial fibrillation/a flutter -Being followed by cardiology and is on beta-blockers and CCB -Now controlled rate -Follow-up 2D echocardiogram Hypertension -Stable on beta-blockers and calcium channel sharon Arthritis -Continue home regimen Obesity with BMI 38.8 -Lifestyle changes advised DVT prophylaxis: Lovenox. Disposition: Continue current management. Monitor for further seizure activities and start DC planning in next 24 hours once cleared from consultants. Patient was seen in collaboration with Dr. Tam. Result Diagram: 12/12/18 0625 12/15/18 0655 Results 24hrs Laboratory Tests Test 12/15/18 06:55 Sodium Level 140 Potassium Level 3.7 Chloride Level 109 Carbon Dioxide Level 25 Anion Gap 6 Blood Urea Nitrogen 18 Creatinine 0.85 Est Glomerular Filtrat Rate mL/min > 60 Glucose Level 109 Calcium Level 8.5 Phenytoin (Dilantin) Level 11.6 Exam/Review of Systems Exam Vitals Vital Signs Date Temp Pulse Resp B/P (MAP) Pulse Ox O2 O2 Flow FiO2 Time Delivery Rate 12/15/18 98.3 70 20 131/70 93 11:57 (90) 12/15/18 Room Air 07:50 12/14/18 2.0 21:13 Intake and Output 12/14/18 12/14/18 12/15/18 1515:00 23:00 07:00 IntakeIntake Total 1960 ml 825 ml OutputOutput Total 1050 ml 1100 ml BalanceBalance 910 ml -275 ml Results Results 24hrs Laboratory Tests Test 12/15/18 06:55 Sodium Level 140 Potassium Level 3.7 Chloride Level 109 Carbon Dioxide Level 25 Anion Gap 6 Blood Urea Nitrogen 18 Creatinine 0.85 Est Glomerular Filtrat Rate mL/min > 60 Glucose Level 109 Calcium Level 8.5 Phenytoin (Dilantin) Level 11.6 Medications Medication Current Medications IV Flush (NS 3 ml) 3 ml PER PROTOCOL IV ; Start 12/11/18 at 19:00 Ondansetron HCl (Zofran Inj) 4 mg Q6H PRN IV NAUSEA/VOMITING; Start 12/11/18 at 19:00 Acetaminophen (Tylenol Tab) 650 mg Q6H PRN PO .PAIN 1-3 OR TEMP; Start 12/11/18 at 19:00 Acetaminophen/ Hydrocodone Bitart ([place] (5/325)) 1 tab Q6H PRN PO .MOD PAIN 4- 6; Start 12/11/18 at 19:00 Morphine Sulfate (morphine) 2 mg Q4H PRN IV .SEVERE PAIN 7-10; Start 12/11/18 at 19:00 Docusate Sodium (Colace) 100 mg Q12H PRN PO .CONSTIPATION; Start 12/11/18 at 19:00 Zolpidem Tartrate (Ambien) 5 mg QHS PRN PO .INSOMNIA; Start 12/11/18 at 21:00 Enoxaparin Sodium (Lovenox) 40 mg DAILY SC Last administered on 12/15/18at 10:22; Admin Dose 40 MG; Start 12/12/18 at 09:00 Folic Acid (Folic Acid) 1 mg DAILY PO Last administered on 12/15/18at 10:14; Admin Dose 1 MG; Start 12/12/18 at 09:00 Hydralazine HCl (Apresoline) 100 mg TID PO Last administered on 12/15/18 10:15; Admin Dose 100 MG; Start 12/11/18 at 21:00 Lisinopril (Zestril) 20 mg BID PO Last administered on 12/15/18 10:15; Admin Dose 20 MG; Start 12/11/18 at 21:00 Methotrexate (Methotrexate) 20 mg Q7D PO Last administered on 12/11/18 22:46; Admin Dose 20 MG; Start 12/11/18 at 22:00 Verapamil HCl (Isoptin Sr) 360 mg DAILY PO Last administered on 12/15/18 10:13; Admin Dose 360 MG; Start 12/12/18 at 09:00 Hydralazine HCl (Apresoline) 10 mg Q4H PRN IV SBP>170; Start 12/11/18 at 19:00 Diltiazem HCl 125 ml @ 5 mls/hr TITRATE IV Last administered on 12/15/18 05:17; Admin Dose 15 MLS/HR; Start 12/12/18 at 01:30 Lorazepam (Ativan) 1 mg Q4H PRN IV SEIZURES Last administered on 12/14/18 16:50; Admin Dose 1 MG; Start 12/12/18 at 05:00 Aspirin (Aspirin) 81 mg DAILY PO Last administered on 12/15/18 10:14; Admin Dose 81 MG; Start 12/13/18 at 12:30 Metoprolol Tartrate (Lopressor) 5 mg Q4H PRN IV HR>110 Hold SBP<100 Last administered on 12/14/18 04:04; Admin Dose 5 MG; Start 12/13/18 at 17:30 Patient Own Medication 1 ea Q14D@0900 SC Last administered on 12/14/18 09:24; Admin Dose 1 EA; Start 12/14/18 at 09:00 Metoprolol Tartrate (Lopressor) 50 mg BID PO Last administered on 12/15/18 10:16; Admin Dose 50 MG; Start 12/14/18 at 21:00 Phenytoin (Dilantin) 200 mg Q8 IV ; Start 12/15/18 at 14:00 Diltiazem HCl (Cardizem Cd) 120 mg DAILY PO ; Start 12/16/18 at 09:00; Status JAMSHID BACH NP December 15, 2018 12:58
--- NOTE | 2018-12-15 13:49 | RADRPT ---
Echocardiogram Report Patient Name: JUWAN GAONAPatient ID: [id number] : 1970 (48y )Study Date: 12/15/2018 10:41:34 AM Gender: MAccession #: [id number] Tech: LE Location: [facility] Ref.Physician: FANNY CARBALLO Height(Cm): BSA: Weight(Kg): Quality: Technically Difficult StudyOrder Physician: FANNY CARBALLO Account #: Procedures: Echocardiographic Report: Transthoracic echocardiogram with complete 2D, M-Mode, and doppler examination. Indications: SVT. Measurements: 2D/M Mode Doppler Measurement Value Normal Range Measurement Value Normal Range LVIDd 2D 4.9 [ 4.2 - 5.8 ] cm AV Mean Jt 1.2 [ 70.0 - 90.0 ] cm/sec LVIDs 2D 3.3 [ 2.5 - 4.0 ] cm AV Mean PG 6.0 [ 2.0 - 4.0 ] mmHg LVPWd 2D 1.1 [ 0.6 - 1.0 ] cm AV Peak Jt 1.7 [ 100.0 - 170.0 ] cm/sec IVSd 2D 1.1 [ 0.6 - 1.0 ] cm AV Peak PG 11.0 [ 2.0 - 9.0 ] mmHg EDV 2D 113.0 [ 62.0 - 150.0 ] ml AV VTI 29.9 cm ESV 2D 45.4 [ 21.0 - 61.0 ] ml LVOT Peak Jt 1.0 [ 70.0 - 110.0 ] cm/sec EF 2D 59.8 [ 52.0 - 72.0 ] percent LVOT Peak PG 4.0 [ 2.0 - 6.0 ] mmHg LVOT Diam 2.1 [ 2.3 - 2.9 ] cm MV E Peak Jt 0.9 [ 60.0 - 130.0 ] cm/sec MV A Peak Jt 0.6 [ 100.0 - 120.0 ] cm/sec MV E/A 1.4 [ 0.8 - 1.5 ] ratio MV Decel Time 225 [ 104 - 258 ] msec Lat E` Jt 0.1 [ 10.0 - 15.0 ] cm/sec Lateral E/E` 6.1 [ 1.0 - 2.0 ] ratio Med E` Jt 0.1 cm/sec MV E/A 1.4 [ 0.8 - 1.5 ] ratio PV Peak Jt 0.9 [ 40.0 - 80.0 ] cm/sec PV Peak PG 4.0 mmHg Findings: Left Ventricle: Normal left ventricular systolic function. Normal left ventricular cavity size. Normal left ventricular wall thickness. Ejection fraction is visually estimated at 55-60 %. Tissue Doppler/Mitral Doppler indices are consistent with pseudonormalization with mildly elevated left atrial pressure (Stage II diastolic dysfunction). Right Ventricle: Normal right ventricular size. Normal right ventricular systolic function. Left Atrium: Upper limit of normal left atrial size. Right Atrium: The right atrium is normal in size. Mitral Valve: Normal appearance and function of the mitral valve with trace physiologic regurgitation. Aortic Valve: Normal appearance of the aortic valve. No significant aortic stenosis or insufficiency. Tricuspid Valve: Normal appearance of the tricuspid valve. Unable to obtain RVSP due to minimal presence of tricuspid regurgitation. There is trace tricuspid regurgitation. Pulmonic Valve: Pulmonic valve not well visualized. Pericardium: Normal pericardium with no significant pericardial effusion. Aorta: Normal aortic root. IVC: Normal size and normal respiratory collapse consistent with normal right atrial pressure. Conclusions: Normal left ventricular systolic function. Normal left ventricular cavity size. Normal left ventricular wall thickness. Ejection fraction is visually estimated at 55-60 %. Tissue Doppler/Mitral Doppler indices are consistent with pseudonormalization with mildly elevated left atrial pressure (Stage II diastolic dysfunction). Normal appearance and function of the mitral valve with trace physiologic regurgitation. Normal appearance of the tricuspid valve. Unable to obtain RVSP due to minimal presence of tricuspid regurgitation. There is trace tricuspid regurgitation. Electronically Signed By: Juwan Steiner 2018-12-15 13:48:33 PDT
[2018-12-15] MEDS: PHENYTOIN 100 MG INJ IV SCH ×2 (14:16→20:49)
[2018-12-16] VITALS: BP 150/84; PULSE 74; PULSE 89; RESP 22
[2018-12-16 04:00] VITALS: BP 150/86; PULSE 91; RESP 22
[2018-12-16] MEDS: PHENYTOIN 100 MG INJ IV SCH (05:39)
[2018-12-16 08:01] VITALS: PULSE 74
[2018-12-16 08:05] VITALS: BP 154/95; PULSE 86; RESP 16
[2018-12-16] MEDS ORDERED: DILTIAZEM (CD) 120 MG CAP PO SCH (09:00)
[2018-12-16] MEDS: ENOXAPARIN 40 MG/0.4 ML SYG SC SCH ×2 (09:00→09:20)
[2018-12-16] MEDS: ASPIRIN 81 MG TAB PO SCH (09:02)
[2018-12-16] MEDS: METOPROLOL 50 MG TAB PO SCH (09:02)
[2018-12-16] MEDS: LISINOPRIL 20 MG TAB PO SCH (09:03)
[2018-12-16] MEDS: FOLIC ACID 1 MG TAB PO SCH (09:03)
[2018-12-16] MEDS: VERAPAMIL (SR) 180 MG TAB PO SCH (09:04)
--- NOTE | 2018-12-16 09:43 | CONS ---
Consultation Date/Type/Reason Admit Date/Time December 11, 2018 at 18:26 Initial Consult Date Requesting Provider: VINH CRAMER Date/Time of Note DATE: 12/16/18 TIME: 09:42 24 HR Interval Summary Free Text/Dictation Pt in the bathroom - not able to see - VS reviewed Exam/Review of Systems Exam Vitals Vital Signs Date Temp Pulse Resp B/P (MAP) Pulse Ox O2 O2 Flow FiO2 Time Delivery Rate 12/16/18 98.3 86 16 154/95 94 08:05 (114) 12/15/18 Nasal 2.0 08:12 Cannula Intake and Output 12/15/18 12/15/18 12/16/18 1515:00 23:00 07:00 IntakeIntake Total 900 ml 650 ml BalanceBalance 900 ml 650 ml Results Result Diagram: 12/12/18 0625 12/16/18 0741 Results 24hrs Laboratory Tests Test 12/16/18 07:41 Sodium Level 139 Potassium Level 3.7 Chloride Level 107 Carbon Dioxide Level 25 Anion Gap 7 Blood Urea Nitrogen 17 Creatinine 0.83 Est Glomerular Filtrat Rate mL/min > 60 Glucose Level 117 Calcium Level 8.5 Phenytoin (Dilantin) Level 13.2 Medications Medication Current Medications IV Flush (NS 3 ml) 3 ml PER PROTOCOL IV ; Start 12/11/18 at 19:00 Ondansetron HCl (Zofran Inj) 4 mg Q6H PRN IV NAUSEA/VOMITING; Start 12/11/18 at 19:00 Acetaminophen (Tylenol Tab) 650 mg Q6H PRN PO .PAIN 1-3 OR TEMP; Start 12/11/18 at 19:00 Acetaminophen/ Hydrocodone Bitart ([place] (5/325)) 1 tab Q6H PRN PO .MOD PAIN 4- 6; Start 12/11/18 at 19:00 Morphine Sulfate (morphine) 2 mg Q4H PRN IV .SEVERE PAIN 7-10; Start 12/11/18 at 19:00 Docusate Sodium (Colace) 100 mg Q12H PRN PO .CONSTIPATION; Start 12/11/18 at 19:00 Zolpidem Tartrate (Ambien) 5 mg QHS PRN PO .INSOMNIA; Start 12/11/18 at 21:00 Enoxaparin Sodium (Lovenox) 40 mg DAILY SC Last administered on 12/15/18 10:22; Admin Dose 40 MG; Start 12/12/18 at 09:00 Folic Acid (Folic Acid) 1 mg DAILY PO Last administered on 12/16/18 09:03; Admin Dose 1 MG; Start 12/12/18 at 09:00 Hydralazine HCl (Apresoline) 100 mg TID PO Last administered on 12/16/18 09:0 3; Admin Dose 100 MG; Start 12/11/18 at 21:00 Lisinopril (Zestril) 20 mg BID PO Last administered on 12/16/18 09:03; Admin Dose 20 MG; Start 12/11/18 at 21:00 Methotrexate (Methotrexate) 20 mg Q7D PO Last administered on 12/11/18 22:46; Admin Dose 20 MG; Start 12/11/18 at 22:00 Verapamil HCl (Isoptin Sr) 360 mg DAILY PO Last administered on 12/16/18 09:04; Admin Dose 360 MG; Start 12/12/18 at 09:00 Hydralazine HCl (Apresoline) 10 mg Q4H PRN IV SBP>170; Start 12/11/18 at 19:00 Diltiazem HCl 125 ml @ 5 mls/hr TITRATE IV Last administered on 12/15/18 05:17; Admin Dose 15 MLS/HR; Start 12/12/18 at 01:30 Lorazepam (Ativan) 1 mg Q4H PRN IV SEIZURES Last administered on 12/14/18 16:50; Admin Dose 1 MG; Start 12/12/18 at 05:00 Aspirin (Aspirin) 81 mg DAILY PO Last administered on 12/16/18 09:02; Admin Dose 81 MG; Start 12/13/18 at 12:30 Metoprolol Tartrate (Lopressor) 5 mg Q4H PRN IV HR>110 Hold SBP<100 Last administered on 12/14/18 04:04; Admin Dose 5 MG; Start 12/13/18 at 17:30 Patient Own Medication 1 ea Q14D@0900 SC Last administered on 12/14/18 09:24; Admin Dose 1 EA; Start 12/14/18 at 09:00 Metoprolol Tartrate (Lopressor) 50 mg BID PO Last administered on 5/28/19at 09:02; Admin Dose 50 MG; Start 12/14/18 at 21:00 Phenytoin (Dilantin) 200 mg Q8 IV Last administered on 12/16/18at 05:39; Admin Dose 200 MG; Start 12/15/18 at 14:00 Diltiazem HCl (Cardizem Cd) 120 mg DAILY PO Last administered on 12/16/18at 09:03; Admin Dose 120 MG; Start 12/16/18 at 09:00 JONES MIGUEL MD December 16, 2018 09:43
[2018-12-16 12:01] VITALS: PULSE 81
[2018-12-16 12:10] VITALS: BP 127/88; PULSE 73; RESP 16
--- NOTE | 2018-12-16 12:17 | CONS ---
Assessment/Plan Assessment/Plan Hospital Course 48 yo M with hx of epilepsy and multiple other comorbidities who presents following a cluster of seizure episodes... for which neurology is consulted. It is likely multifactorial in the context of medication noncompliance and systemic illness. MRI brain is without acute intracranial pathology. EEG is notable for R frontal onset electrographic seizures P: Cont dilantin 200mg TID for now; titrate PRN to goal level 10-20 Ativan IV PRN prolonged seizure or for cluster Cont medical management per primary Reorient as necessary Limit sedating medications where possible PT/OT as necessary The pt cannot drive Will follow clinically Consultation Date/Type/Reason Admit Date/Time December 11, 2018 at 18:26 Type of Consult Neurology Reason for Consultation seizure clusters Requesting Provider: VINH CRAMER Date/Time of Note DATE: 12/16/18 TIME: 12:17 24 HR Interval Summary Free Text/Dictation Continues acute care. No further seizure episodes reported. Awaiting discharge. Exam Vital Signs Vitals Vital Signs Date Temp Pulse Resp B/P (MAP) Pulse Ox O2 O2 Flow FiO2 Time Delivery Rate 12/16/18 97.7 73 16 127/88 94 12:10 (101) 12/15/18 Nasal 2.0 08:12 Cannula Intake and Output 12/15/18 12/15/18 12/16/18 1515:00 23:00 07:00 IntakeIntake Total 900 ml 650 ml BalanceBalance 900 ml 650 ml Exam PE: Gen Appearance: No Apparent Distress HEENT: Normocephalic Cardiovascular: Regular rate Lungs: Clear bilaterally Abdomen: Soft Extremities: Dry NE: The patient was awake and alert. Language was normal. Fund of knowledge was adequate. Pupils were equal and reactive to light. There was no afferent pupillary defect. Visual mora were normal. Funduscopic examination was limited. Extra-ocular movements were full. Ptosis was absent. There was no nystagmus. Facial sensation was normal. Face was symmetric with normal strength. Hearing was intact. Palate movements were normal. Neck strength was normal. There was normal tongue bulk and speed of movement. Tone was normal. Muscle bulk was normal. I did not see fasciculations. Arms and legs were symmetric. Vibration sensation was normal. Temperature and pinprick sensation was normal. Rapid alternating movements were normal. There was no dysmetria. There was no intention tremor. Gait was deferred due to bedrest. Arm and leg reflexes were 2+ and symmetric. Valdez's sign was absent. Plantar responses were flexor. DARIN CARRANZA NP December 16, 2018 12:17
--- NOTE | 2018-12-16 12:34 | PDOCDIS ---
Discharge Instructions CONDITION [id number] Patient Condition: [id number] Stable HOME CARE INSTRUCTIONS: [id number] Diet Instructions: [id number] Low Fat /Cholesterol FOLLOW UP/APPOINTMENTS Follow-up Plan Follow-up with outpatient neurologist and primary care physician in 1 week JAMSHID TOBIAS NP December 16, 2018 12:34
[2018-12-16] MEDS ORDERED: DILT120C77 PO (12:44)
[2018-12-16] MEDS ORDERED: PHEN100C PO (12:44)
[2018-12-16] MEDS ORDERED: METO-429 PO (12:44)
[2018-12-16] MEDS ORDERED: ASPI-831 PO (12:44)
--- NOTE | 2018-12-16 12:49 | DS ---
Date/Time of Note Date/Time of Note DATE: 12/16/18 TIME: 12:46 Discharge Summary Admission/Discharge Info Admit Date/Time December 11, 2018 at 18:26 Discharge Date/Time Discharge Diagnosis SUBJECTIVE: Patient with no further seizure activities over 24 hours. No pal pitation reported. Breakthrough seizures. Stable Atrial fibrillation/a flutter. Converted to sinus Hypertension Arthritis Obesity with BMI 38.8 Patient Condition: Stable Consults DR.higgins Parker Procedures 12/14/2018:Brain MRI IMPRESSION: MRI of the brain demonstrates asymmetry of the hippocampal formations with slight increased FLAIR signal within the right hippocampal formation suggesting right mesial temporal sclerosis. The rest the brain demonstrates minimal foci of abnormal signal seen both within the periventricular subcortical white matter which could represent microvascular changes. RPTAT: PP Physician Nick Date Time Electronically viewed and signed by Physician Nick on 12/14/2018 18:22 RL/ CC: DARIN CARRANZA NP [phone] Hospital Course 48 yo obese M w/seizure dsiorders,arthritis htn, anxiety, here with breakthrough seizures. She was seen by neurology and was on IV Dilantin dose. 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 fib to normal sinus rhythm. Patient did not have any chest pain or ACS symptoms. He was continued on antihypertensive for hypertension. Patient was counseled on lifestyle changes for underlying obesity. At this time, patient with no further seizure activities over 48 hours. He remained alert and oriented. MRI unremarkable. Patient is cleared from cardiology and neurology standpoint for outpatient follow-up. He was recommended to continue Cardizem and metoprolol along with his blood pressure medication which he takes at home. I have also educated patient to titrate clonidine dose for blood pressure above 160, hoping he would need it any further. Patient and family verbalized understanding. Patient was given Dilantin 200 mg 3 times a day to be continued. Approximately 60-minute was spent on coordinating the discharge on this patient. Patient was seen in collaboration with Dr. Tam. Home Meds Active Scripts Phenytoin* Sodium Extended (Dilantin*) 100 Mg Capsule, 200 MG PO TID, #90 CAP Prov:TOBIAS,JAMSHID V. TALEND DEVELOPER 12/16/18 Aspirin (Aspirin) 81 Mg Chew, 81 MG PO DAILY, #30 TAB Prov:TOBIAS,JAMSHID V. TALEND DEVELOPER 12/16/18 Metoprolol Tartrate* (Lopressor*) 50 Mg Tab, 50 MG PO BID, #60 TAB Prov:TOBIAS,JAMSHID V. TALEND DEVELOPER 12/16/18 Diltiazem Hcl* (Cardizem CD*) 120 Mg Cap.sr.24h, 120 MG PO DAILY, #30 TAB Prov:TOBIAS,JAMSHID V. TALEND DEVELOPER 12/16/18 Reported Medications Adalimumab (Humira) 40 Mg/0.8 Ml Pen.ij.kit, 0.4 ML SQ Q 14D 12/11/18 Lisinopril* (Lisinopril*) 20 Mg Tablet, 20 MG PO BID, #30 TAB 12/11/18 Alprazolam* (Alprazolam*) 0.25 Mg Tablet, 0.25 MG PO TID PRN for ANXIETY, TAB 12/11/18 Hydralazine Hcl* (Hydralazine Hcl*) 100 Mg Tablet, 100 MG PO TID, #90 TAB 12/11/18 Diclofenac Sodium* (Diclofenac Sodium*) 50 Mg Tablet.dr, 50 MG PO BID, #60 TAB 12/11/18 Methotrexate* (Methotrexate*) 2.5 Mg Tab, 20 MG PO Q7D, TAB 12/11/18 Folic Acid* (Folic Acid*) 1 Mg Tablet, 1 MG PO DAILY, TAB 12/11/18 Clonidine Hcl* (Clonidine Hcl*) 0.2 Mg Tablet, 0.2 MG PO Q4H PRN for HTN, TAB 12/11/18 Verapamil Hcl* (Verelan*) 360 Mg Cap24h.pel, 360 MG PO DAILY, CAP 12/11/18 Discontinued Reported Medications Phenytoin* Sodium Extended (Dilantin*) 100 Mg Capsule, 100 MG PO QID, CAP ADJUSTED IN ER ON SAT-QAM (12/10)-3CAP BID 12/11/18 Discontinued Scripts Phenytoin* Sodium Extended (Dilantin*) 300 Mg Capsule, 300 MG PO BID, #60 CAP Prov:NIRANJAN CASTANO MD 12/10/18 Follow-up Plan Follow-up with outpatient neurologist and primary care physician in 1 week Primary Care Provider Not On Staff Doctor Pending Labs Laboratory Tests Test 12/16/18 07:41 Sodium Level 139 mmol/L (135-144) Potassium Level 3.7 mmol/L (3.5-5.1) Chloride Level 107 mmol/L (97-110) Carbon Dioxide Level 25 mmol/L (21-31) Anion Gap 7 (5-13) Blood Urea Nitrogen 17 mg/dl (7-20) Creatinine 0.83 mg/dl (0.61-1.24) Est Glomerular Filtrat Rate mL/min > 60 mL/min (>60) Glucose Level 117 mg/dl (70-220) Calcium Level 8.5 mg/dl (8.4-10.2) Phenytoin (Dilantin) Level 13.2 ug/ml (10.0-20.0) JAMSHID TOBIAS NP December 16, 2018 12:49
[2018-12-16] MEDS ORDERED: PHENYTOIN 100 MG CAP PO SCH (13:00)
--- NOTE | 2018-12-17 09:09 | RADRPT ---
Vent Rate: 149 bpm RR Interval: 402 msec DE Interval: [id number] msec QRS Duration: 88 msec QT Interval: 298 msec QTC Interval: 470 msec P-R-T [place]: [id number] - 66 - 36 degrees Atrial fibrillation.with RVR Electronically Signed By: Shon Ludwig
== END 2018-12-16 13:30 | disposition home or self-care (01) | DRG 101 ==
LOC: E/R 15:25 → TEL 18:26 → CANRESERV 22:36 → EDBEDREQSVC 23:55 → TEL 12-12 01:05
PROVIDERS: ADMIT Internal Medicine; ATTEND Internal Medicine
DX: G40.909 Epilepsy, unspecified, not intractable, without status epilepticus (principal); E87.1 Hypo-osmolality and hyponatremia; I47.1 Supraventricular tachycardia; I48.92 Unspecified atrial flutter; I10 Essential (primary) hypertension; J45.909 Unspecified asthma, uncomplicated; L40.50 Arthropathic psoriasis, unspecified; E87.6 Hypokalemia; E66.01 Morbid (severe) obesity due to excess calories; Z68.38 Body mass index [BMI] 38.0-38.9, adult; F41.9 Anxiety disorder, unspecified; I48.91 Unspecified atrial fibrillation; E83.51 Hypocalcemia
CPT/HCPCS: 36415; 70450; 70551; 70552; 71045; 80048; 80053; 80061; 80185; 80307; 81003; 82962; 83036; 83735; 84100; 84436; 84443; 84479; 84484; 85025; 93005; 93306; 95819; 96374; J0610; J1165; J1650; J2060; J3480; J7040